=== PATIENT | male | born 1950 | race Caucasian/White ===

== ENCOUNTER 2016-10-17 20:31 | Inpatient (IN) | payer OTHER ==
[~2016-10-17] VITALS: Ht 177.8 cm; Wt 79.8 kg
[2016-10-17 21:35] LABS: MODE NASAL CANNULA; Sample Type Blood venous; Venous COHb 0.1 %; Venous Fraction OxyHgb 26.9 %; Venous Total Hemglobin 13.5 g/dl
--- NOTE | 2016-10-17 21:41 | RADRPT ---
PROCEDURE: XR Chest. CLINICAL INDICATION: Dyspnea. TECHNIQUE: Single frontal view of the chest was obtained COMPARISON: None FINDINGS: The heart and mediastinum are within normal limits. Mild pulmonary vascular congestion with patchy atelectasis versus airspace disease at lung bases. There is no pleural effusion or pneumothorax. IMPRESSION: Mild failure. RPTAT: [facility]U Physician Isabelle Date Time Electronically viewed and signed by Physician Isabelle on 10/17/2016 21:41 RS/
[2016-10-17 21:46] LABS: CHLORIDE 102 mmol/L (97-110)
[2016-10-17 21:47] LABS: ALBUMIN 3.8 g/dl (3.3-4.9); BASOPHILS % 0.4 % (0.0-2.0); EOSINOPHILS # 0.2 10^3/ul (0.0-0.5); HEMATOCRIT 40.7 % (42.0-52.0); HEMOGLOBIN 13.6 g/dl (14.0-18.0); LYMPHOCYTES # 1.4 10^3/ul (0.8-2.9); LYMPHOCYTES % 16.2 % (15.0-51.0); MEAN CORPUSCULAR HEMOGLOBIN 29.7 pg (29.0-33.0); MEAN CORPUSCULAR HGB CONC 33.5 g/dl (32.0-37.0); MEAN CORPUSCULAR VOLUME 88.6 fl (82.0-101.0); MEAN PLATELET VOLUME 7.6 fl (7.4-10.4); MONOCYTE # 0.7 10^3/ul (0.3-0.9); MONOCYTES % 7.7 % (0.0-11.0); NEUTROPHIL # 6.5 10^3/ul (1.6-7.5); NEUTROPHILS % 73.7 % (39.0-77.0); PLATELET COUNT 195 10^3/UL (140-440); PROTIME 13.2 Sec (12.2-14.2); RED CELL DISTRIBUTION WIDTH 13.1 % (11.5-14.5); SODIUM 142 mmol/L (135-144); UNCORRECTED WBC 8.8 10^3/ul (4.8-10.8); WHITE BLOOD COUNT 8.8 10^3/ul (4.8-10.8)
[2016-10-17 21:48] LABS: CONDITION 1; POTASSIUM 4.3 mmol/L (3.5-5.1)
[2016-10-17 21:50] LABS: ALANINE AMINOTRANSFERASE 26 IU/L (13-69); ALBUMIN/GLOBULIN RATIO 1.05; ALKALINE PHOSPHATASE 68 IU/L (42-121); ANION GAP 15 (8-16); ASPARTATE AMINO TRANSFERASE 24 IU/L (15-46); BILIRUBIN,INDIRECT 0.7 mg/dl (0-1.1); BILIRUBIN,TOTAL 0.7 mg/dl (0.2-1.3); BLOOD UREA NITROGEN 15 mg/dl (7-20); CALCIUM 9.2 mg/dl (8.4-10.2); CARBON DIOXIDE 29 mmol/L (21-31); CREATININE 0.72 mg/dl (0.61-1.24); GLUCOSE 96 mg/dl (70-220); TOTAL PROTEIN 7.4 g/dl (6.1-8.1)
[2016-10-17 21:59] LABS: B-TYPE NATRIURETIC PEPTIDE 257 PG/ML (0-125)
[2016-10-17 22:20] LABS: TROPONIN-I < 0.012 ng/ml (0.00-0.12)
[2016-10-17] MEDS ORDERED: SOD CHLORIDE 0.9% 100 ML ONE (22:56)
[2016-10-17] MEDS ORDERED: IOHEXOL 350MG/ML 50 ML BTL ONE (22:56)
[2016-10-17] MEDS ORDERED: IOHEXOL 100 ML ONE (22:56)
--- NOTE | 2016-10-17 23:23 | RADRPT ---
PROCEDURE: CT angiogram of the chest with contrast. CLINICAL INDICATION: Chest pain. TECHNIQUE: CT angiogram of the chest was obtained using a multi-detector high-resolution CT. Con tiguous axial images were obtained during the dynamic injection of 94 cc of Omnipaque 350 intravenou s contrast. Coronal and sagittal reformatted images were obtained. 3-D reformatted images were als o obtained. Images were reviewed on a PACS workstation. One or more of the following dose reduction techniques were used: - Automated exposure control. - Adjustment of the mA and/or kV according to patient size. - Use of iterative reconstruction technique. Exam CTD/vol = 16.85 mGy. Total exam DLP = 601.35 mGy-cm. COMPARISON: None. FINDINGS: There are multiple filling defects within the distal right and left main pulmonary arteries extendin g to the lobar, segmental and subsegmental pulmonary arteries. The heart is mildly enlarged. There is no pericardial thickening or effusion. The aorta is of normal course and caliber without eviden ce of aneurysm or dissection. There is no evidence of chest wall mass. There is a hypodense nodule within the right thyroid measu ring 1.9 x 2.3 cm. There is a small left axillary lymph node measuring 1.8 x 1.5 cm. There are no enlarged mediastinal or hilar lymph nodes by CT criteria. There is no parenchymal nodule or consoli dation. There is no pleural effusion. There is mild bibasilar atelectasis. The central tracheobronc hial tree is within normal limits. Limited evaluation of the upper abdomen demonstrates a small right renal cyst. There is moderate re tained stool within the colon. There are old fractures of the right posterior third through eighth r ibs. IMPRESSION: Extensive pulmonary emboli bilaterally. Mild bibasilar atelectasis. Mild cardiomegaly. Right thyroid hypodense nodule measuring 1.9 x 2.3 cm. Small left axillary lymph node. Moderate retained stool within the colon. Old fractures of the right posterior third through eighth ribs. A call report was made to Dr. Payton at 11:20 p.m. .Devon Bustamante MD, MD Date Time Electronically viewed and signed by .Devon Bustamante MD, MD on 10/17/2016 23:22 .T/
[2016-10-17] MEDS ORDERED: ACETAMINOPHEN 325 MG TAB PO PRN (23:30)
[2016-10-17] MEDS ORDERED: HEPARIN 1000 UNITS/ML 10 ML INJ IV PRN ×2 (23:30)
[2016-10-17] MEDS ORDERED: ONDANSETRON 4 MG INJ IV PRN (23:30)
[2016-10-17] MEDS ORDERED: HEPARIN 1000 UNITS/ML 10 ML INJ IV ONE (23:30)
[2016-10-17] MEDS ORDERED: HEPARIN 25000 UNITS/250 ML 250 ML IV SCH (23:30)
[2016-10-18] VITALS (13 sets, daily range): BP systolic 94–154; BP diastolic 50–84; PULSE 78–102; RESP 18–20; Ht 177.8 cm; Wt 79.8 kg
[2016-10-18] MEDS ORDERED: ENOXAPARIN 80 MG/0.8 ML SYG SC SCH
[2016-10-18] MEDS ORDERED: BISACODYL 10 MG SUPP PR PRN (00:30)
[2016-10-18] MEDS ORDERED: morphine 2 MG INJ IV PRN (00:30)
[2016-10-18] MEDS ORDERED: ONDANSETRON 4 MG INJ IV PRN (00:30)
[2016-10-18] MEDS ORDERED: DOCUSATE SODIUM 100 MG CAP PO PRN (00:30)
[2016-10-18] MEDS ORDERED: LORAZEPAM 0.5 MG TAB PO PRN (00:30)
[2016-10-18] MEDS ORDERED: NACL 0.9% 3 ML SYG IV SCH (00:30)
[2016-10-18] MEDS ORDERED: ACETAMINOPHEN 325 MG TAB PO PRN (00:30)
[2016-10-18] MEDS ORDERED: MAGNESIUM HYDROXIDE 30ML CUP PO PRN (00:30)
--- NOTE | 2016-10-18 01:20 | ERA ---
ER Documentation Chief Complaint Date/Time DATE: 10/18/16 TIME: 01:13 Chief Complaint sob x 1 day HPI 66-year-old male with a history of hypertension presenting complaining of shortness of breath for about 3 days. The patient mostly lays in bed all day due to his balance issues but has a physical therapist. He does not exert himself much. He denies any associated chest pain, cough, dizziness, diaphoresis, URI symptoms, phlegm. His legs are usually mildly edematous per and that has not gotten worse. Currently the patient endorses mild shortness of breath but feels comfortable. He saw a solar manufacturer's representative one year ago because he was diagnosed with a right bundle branch block, however the etiology is unknown. ROS All systems reviewed and are negative except as per history of present illness. Allergies Allergies: Coded Allergies: No Known Allergy (Unverified , 10/17/16) PMhx/Soc Medical and Surgical Hx: pt denies Surgical Hx Anesthesia Reaction: No Hx Neurological Disorder: Yes (Cerebellar atrophy with balance problems) Hx Respiratory Disorders: No Hx Cardiac Disorders: Yes (Right BUNDLE BRUNCH BLOCK) Hx Psychiatric Problems: No Hx Miscellaneous Medical Probl: No Hx Alcohol Use: No Hx Substance Use: No Hx Tobacco Use: No Smoking Status: Never smoker FmHx Family History: No diabetes Physical Exam Vitals Vital Signs Date Time Temp Pulse Resp B/P Pulse Ox O2 Delivery O2 Flow Rate FiO2 10/17/16 21:51 Nasal Cannula 10/17/16 20:42 98.3 89 17 150/94 97 10/17/16 20:42 Simple Mask Physical Exam Const: No apparent distress, nontoxic Head: Atraumatic Eyes: Normal Conjunctiva ENT: Normal External Ears, Nose and Mouth. Neck: Full range of motion. No JVD. no meningismus. Resp: Clear to auscultation bilaterally. No wheezing or rales Cardio: Regular rate and rhythm, no murmurs Abd: Soft, non tender, non distended. Normal bowel sounds Skin: No petechiae or rashes Back: No midline or flank tenderness Ext: No cyanosis, 1+ bilateral lower extremity edema, equal in size bilaterally, no calf tenderness. 2+ distal pulses Neur: Awake and alert and oriented 3. Psych: Normal Mood and flat affect Result Diagram: 1/21/17 2130 1/21/17 2130 Results 24 hrs Laboratory Tests Test 10/17/16 20:55 10/17/16 21:30 Francois Test N/A Arterial Blood Date Drawn 10/17/2016 9:20:23 PM Arterial Blood Gas Puncture Site Right Brachial Blood Gas Actual Respiration Rate 26 Blood Gas Critical Value Read Back Naina LAL Blood Gas Modality NASAL CANNULA Blood Gas Notified Time 10/17/2016 9:35:20 PM Blood Gas Notified Whom BL Blood Gas Specimen Source Blood venous Blood Gas Temperature 37.0C Carboxyhemoglobin 0.1% FiO2 28.0% Venous Blood Base Excess 1.6mmol/L Venous Blood HCO3 26.6mmol/L Venous Blood Methemoglobin 1.0% Venous Blood Oxygen Saturation 27.2mmHG Venous Blood Oxyhemoglobin 26.9% Venous Blood Total Hemoglobin 13.5g/dl Venous Blood pCO2 (Temp Corrected) 43.2mmHG Venous Blood pH 7.407 Venous Blood pO2 (Temp Corrected) 18.6mmHG Activated Partial Thromboplast Time 30.0Sec Alanine Aminotransferase (ALT/SGPT) 26IU/L Albumin 3.8g/dl Albumin/Globulin Ratio 1.05 Alkaline Phosphatase 68IU/L Anion Gap 15 Aspartate Amino Transf (AST/SGOT) 24IU/L B-Type Natriuretic Peptide 257PG/ML Basophils # 0.010^3/ul Basophils % 0.4% Blood Urea Nitrogen 15mg/dl Calcium Level 9.2mg/dl Carbon Dioxide Level 29mmol/L Chloride Level 102mmol/L Creatinine 0.72mg/dl Direct Bilirubin 0.00mg/dl Eosinophils # 0.210^3/ul Eosinophils % 2.0% Globulin 3.60g/dl Glucose Level 96mg/dl Hematocrit 40.7% Hemoglobin 13.6g/dl INR International Normalized Ratio 1.00 Indirect Bilirubin 0.7mg/dl Lymphocytes # 1.410^3/ul Lymphocytes % 16.2% Mean Corpuscular Hemoglobin 29.7pg Mean Corpuscular Hemoglobin Concent 33.5g/dl Mean Corpuscular Volume 88.6fl Mean Platelet Volume 7.6fl Monocytes # 0.710^3/ul Monocytes % 7.7% Neutrophils # 6.510^3/ul Neutrophils % 73.7% Nucleated Red Blood Cells # 0.010^3/ul Nucleated Red Blood Cells % 0.0/100WBC Platelet Count 67771^3/UL Potassium Level 4.3mmol/L Prothrombin Time 13.2Sec Prothrombin Time Ratio 1.0 Red Blood Count 4.6010^6/ul Red Cell Distribution Width 13.1% Sodium Level 142mmol/L Total Bilirubin 0.7mg/dl Total Protein 7.4g/dl Troponin I < 0.012ng/ml White Blood Count 8.810^3/ul Current Medications Medications (Trade) Dose Ordered Sig/Aron Route PRN Reason Start Time Stop Time Status Last Admin Dose Admin IV Flush 10 ml 10 ml STK-MED ONCE .ROUTE 10/17/16 22:56 10/17/16 22:57 DC 10/17/16 23:10 Sodium Chloride 100 ml @ ud STK-MED ONCE .ROUTE 10/17/16 22:56 10/17/16 22:57 DC 10/17/16 23:10 Iohexol (Omnipaque) 100 ml @ ud STK-MED ONCE .ROUTE 10/17/16 22:56 10/17/16 22:57 DC 10/17/16 23:10 Iohexol (Omnipaque 350mg/ ml) 50 ml STK-MED ONCE .ROUTE 10/17/16 22:56 10/17/16 22:57 DC Procedures/MDM EKG: Rate/Rhythm: Normal sinus rhythm QRS, ST, T-waves: No changes consistent w/ acute ischemia, left axis deviation, right bundle branch block Impression: No evidence of ischemia or arrhythmia, right bundle branch block Chest x-ray shows evidence of mild heart failure per radiology This is a 66-year-old male presenting with progressively worsening shortness of breath for 3 days. His vitals are notable for hypoxia on room air to 91% improved with oxygen supplementally. His VBG was notable for a lower than expected PvO2. His BNP was only mildly elevated. I have a low suspicion that the patient's symptoms are secondary to acute coronary syndrome or slowly secondary to CHF. CT angiogram of the chest was done showing bilateral pulmonary embolisms. I spoke with , the admitting physician for [facility], who asked me to start the patient on Lovenox subcutaneously. Currently he is hemodynamically stable and shows no signs of acute heart failure or heart strain. Patient will be admitted to telemetry for further workup and management. Family and patient were updated on the plan. Critical Care Time: 30 minutes Treatments/Evaluations: Close monitoring and treatment of unstable vital signs, cardiorespiratory, and neurologic status, while maintaining tight balance of fluid, respiratory, and cardiac interventions. This time includes discussing the case with the patient and the patients family. This time does not include all procedures stated elsewhere in this record. This time also includes reviewing old records, labs and radiological studies. This time includes examining and re-examining the patient. Additionally, this time also includes arranging care with admitting and consulting physicians. Accepting Care Team: Current data and ongoing care discussed. Time: Time of admission Primary Provider: Tan Consulting: none Outstanding Data: none Departure Diagnosis: Primary Impression: Bilateral pulmonary embolism Additional Impression: Acute respiratory failure with hypoxia Condition: Serious LETICIA CAROLINA MD Oct 18, 2016 01:20
[2016-10-18] MEDS ORDERED: DUTA0.5C PO (01:26)
[2016-10-18] MEDS ORDERED: CEPH250C PO (01:26)
[2016-10-18] MEDS: PANTOPRAZOLE (EC) 40 MG TAB PO SCH (05:54)
[2016-10-18 07:22] LABS: BASOPHILS % 0.5 % (0.0-2.0); EOSINOPHILS # 0.2 10^3/ul (0.0-0.5); EOSINOPHILS % 2.4 % (0.0-7.0); HEMATOCRIT 34.4 % (42.0-52.0); HEMOGLOBIN 11.9 g/dl (14.0-18.0); LYMPHOCYTES # 1.5 10^3/ul (0.8-2.9); LYMPHOCYTES % 19.9 % (15.0-51.0); MEAN CORPUSCULAR HEMOGLOBIN 30.1 pg (29.0-33.0); MEAN CORPUSCULAR HGB CONC 34.4 g/dl (32.0-37.0); MEAN CORPUSCULAR VOLUME 87.4 fl (82.0-101.0); MEAN PLATELET VOLUME 7.8 fl (7.4-10.4); MONOCYTE # 0.7 10^3/ul (0.3-0.9); MONOCYTES % 9.5 % (0.0-11.0); NEUTROPHIL # 5.2 10^3/ul (1.6-7.5); NEUTROPHILS % 67.7 % (39.0-77.0); PLATELET COUNT 179 10^3/UL (140-440); RED BLOOD COUNT 3.93 10^6/ul (4.70-6.10); RED CELL DISTRIBUTION WIDTH 13.3 % (11.5-14.5); UNCORRECTED WBC 7.7 10^3/ul (4.8-10.8); WHITE BLOOD COUNT 7.7 10^3/ul (4.8-10.8)
[2016-10-18 07:39] LABS: CONDITION 1
[2016-10-18 07:45] LABS: ALBUMIN 3.2 g/dl (3.3-4.9)
[2016-10-18 07:46] LABS: POTASSIUM 3.8 mmol/L (3.5-5.1)
[2016-10-18 07:47] LABS: CREATININE 0.77 mg/dl (0.61-1.24)
[2016-10-18 07:48] LABS: ALBUMIN/GLOBULIN RATIO 0.96; BILIRUBIN,INDIRECT 0.6 mg/dl (0-1.1); BILIRUBIN,TOTAL 0.6 mg/dl (0.2-1.3); TOTAL PROTEIN 6.5 g/dl (6.1-8.1)
[2016-10-18 07:49] LABS: CALCIUM 8.6 mg/dl (8.4-10.2)
[2016-10-18] MEDS ORDERED: ENOXAPARIN 100 MG/ML SYG SC SCH (09:00)
[2016-10-18] MEDS: DUTASTERIDE 0.5 MG CAP PO SCH (09:47)
[2016-10-18] MEDS: ENOXAPARIN 80 MG/0.8 ML SYG SC SCH ×2 (09:50→21:22)
--- NOTE | 2016-10-18 10:17 | RADRPT ---
PROCEDURE: US bilateral lower extremity veins. CLINICAL INDICATION: Bilateral leg pain and swelling. Bilateral pulmonary emboli. TECHNIQUE: Multiple longitudinal and transverse images of the bilateral lower extremity veins were obtained with novoa scale and color Doppler imaging. The common femoral vein, femoral vein, and popl iteal vein were evaluated. 2D grayscale measurements with compression sonography, color Doppler, and pulsed Doppler with augmentation. COMPARISON: CT pulmonary angiogram dated 10/17/2016 which demonstrated extensive bilateral pulmona ry emboli. FINDINGS: The right common femoral vein is patent with normal flow and compressibility. There is lack of flow and lack of compressibility of the right femoral vein and right popliteal vein. The veins are dila danilo and contain echogenic thrombus. There is also thrombus in the right posterior tibial vein in th e calf. The left common femoral, femoral and popliteal veins are normally compressible throughout. Color fl ow demonstrates normal filling of the vessels. Normal waveforms are visualized and there is normal response to augmentation. IMPRESSION: 1. Acute deep venous thrombosis of the right femoral vein and right popliteal vein. 2. Otherwise normal bilateral lower extremity venous Doppler. RPTAT: QQ .Farhan Fatima MD, Date Time Electronically viewed and signed by .Farhan Fatima MD, on 10/18/2016 10:17 .R/
--- NOTE | 2016-10-18 12:10 | RADRPT ---
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 Physician: PARESH ROSE Quality: Adequate Procedures: Transthoracic echocardiogram with complete 2D, M-Mode, and Doppler examination. Indications: Pulmonary embolism. 2D/M Mode Doppler Measurement Value Normal Ranges Measurement Value Normal Ranges AoR Diam MM 3.7 cm AV Peak Russel 1.2 m/sec ACS MM 2.2 cm AV Peak PG 5.9 mmHg LVIDd 2D 3.7 3.5 - 5.6 cm LVOT Peak Russel 0.8 m/sec LVIDs 2D 2.5 2.1 - 4.1 cm LVOT Peak PG 2.7 mmHg LVPWd 2D 1.0 0.6 - 1.1 cm MV E Peak Russel 0.5 m/sec IVSd 2D 1.0 0.6 - 1.1 cm MV A Peak Russel 0.6 m/sec EDV 2D 56.4 cm3 MV E/A 0.8 ESV 2D 15.6 cm3 MV Decel Time 149 msec LA Dimen 2D 3.1 2.3 - 4.0 cm MV Decel Carter 3 MV E/A 0.8 TR Peak Russel 3.5 m/sec TR Peak PG 49.4 mmHg PV Peak Russel 1.0 m/sec PV Peak PG 4.0 mmHg RVSP 52.4 mmHg Findings Left Ventricle: Normal left ventricular systolic function. Normal left ventricular cavity size. Normal left ventricular wall thickness. Ejection fraction is visually estimated at 06 %. Tissue Doppler/Mitral Doppler indices are consistent with impaired relaxation (Stage I diastolic dysfunction). E/E`=4. Right Ventricle: Normal right ventricular size. Normal right ventricular systolic function. Left Atrium: The left atrium is normal in size. Right Atrium: The right atrium is normal in size. Atrial Septum: Normal atrial septum. Mitral Valve: Normal appearance of the mitral valve. No mitral valve regurgitation is seen. Aortic Valve: No significant aortic stenosis or insufficiency. Normal trileaflet aortic valve structure. Tricuspid Valve: Normal appearance of the tricuspid valve. Estimated peak PA systolic pressure 52 mmHg. There is mild to moderate tricuspid regurgitation. Pulmonic Valve: Normal pulmonic valve appearance. No evidence of pulmonic regurgitation. Pericardium: Normal pericardium with no significant pericardial effusion. Aorta: Normal aortic root. IVC: Normal size and normal respiratory collapse consistent with normal right atrial pressure. Pulmonary Artery: Normal pulmonary artery size. Conclusions 1.Normal left ventricular systolic function. Normal left ventricular cavity size. Normal left ventricular wall thickness. Ejection fraction is visually estimated at 06 %. Tissue Doppler/Mitral Doppler indices are consistent with impaired relaxation (Stage I diastolic dysfunction). E/E`=4. 2.Normal appearance of the mitral valve. No mitral valve regurgitation is seen. 3.No significant aortic stenosis or insufficiency. Normal trileaflet aortic valve structure. 4.Normal appearance of the tricuspid valve. Estimated peak PA systolic pressure 52 mmHg. There is mild to moderate tricuspid regurgitation. Electronically Signed By: Melchor Mclaughlin 18-Oct-2016 12:08:53 -0800 Patient Name: LYNDSEY BALL Study Date: 18-Oct-[id number]
[2016-10-18 16:50] LABS: T3 UPTAKE 41.2 % (23.5-40.5)
[2016-10-18 17:04] LABS: THYROID STIMULATING HORMONE 0.464 MIU/L (0.465-4.680)
[2016-10-18 17:18] LABS: ADD UMIC NO; URINE BILIRUBIN (Dip) NEGATIVE (NEGATIVE); URINE BLOOD (Dip) NEGATIVE (NEGATIVE); URINE COLOR LT. YELLOW (YELLOW); URINE GLUCOSE (Dip) NEGATIVE (NEGATIVE); URINE KETONES (Dip) NEGATIVE (NEGATIVE); URINE LEUKOCYTE ESTERASE (Dip) NEGATIVE (NEGATIVE); URINE NITRITE (Dip) NEGATIVE (NEGATIVE); URINE TOTAL PROTEIN (Dip) NEGATIVE (NEGATIVE); URINE UROBILINOGEN (Dip) 0.2 E.U./dL (0.1-1.0)
--- NOTE | 2016-10-18 18:18 | CONS ---
DATE OF ADMISSION: 10/17/2016 DATE OF CONSULTATION: 10/18/2016 TYPE OF CONSULTATION: Pulmonary. REFERRING PHYSICIAN: Dr. Rose. REASON FOR CONSULTATION: Pulmonary embolism. HISTORY OF PRESENT ILLNESS: A 66-year-old gentleman with a history of hypertension and cerebellar a taxia, who is mostly bedridden, was brought to the emergency room with complaints of shortness of br eath for the past few days' duration. He did not have any cough, chest pain, palpitation, hemoptysi s, or other symptoms. He was noted to be mildly hypoxic on arrival. Subsequently, a CT angio was d one, which showed bilateral pulmonary embolism. Doppler of lower extremity was also positive for ac [place] band DVT in right lower extremity. The patient was started on full dose Lovenox, currently on 2 lite rs O2 nasal cannula, saturating 98%, and does not appear in acute distress. He claims to be feeling better and denies any other specific symptoms. REVIEW OF SYSTEMS: All systems were reviewed and found to be negative. ALLERGIES: DENIES. PAST MEDICAL HISTORY: History of hypertension, cerebellar ataxia, right bundle bunch block. SOCIAL HABITS: Nonsmoker. Lives at home. FAMILY HISTORY: Noncontributory. PHYSICAL EXAMINATION: VITAL SIGNS: Blood pressure 120/76, pulse 80, respiration 18, temperature 97.8. Currently on 2 lit ers O2 nasal cannula, saturating 97%. HEENT: Pupils are equal and react to light. NECK: Supple. No JVD noted, no cervical adenopathy noted, no carotid bruits heard. LUNGS: Fair breath sounds bilaterally. CARDIOVASCULAR: S1, S2 normal. ABDOMEN: Soft, nontender. No organomegaly or masses noted. EXTREMITIES: No clubbing or cyanosis noted. Slight edema on the right lower extremity noted. NEUROLOGICAL: Awake and responsive. LABORATORIES: Sodium 141, potassium 3.8, chloride 105, CO2 of 27, BUN 15, creatinine 0.77, glucose 88. WBC 7.7, hemoglobin 11.9, hematocrit 34.4, platelets 179. CT angio positive for bilateral embo li. IMPRESSION: 1. Acute pulmonary embolism and deep venous thrombosis. 2. History of cerebellar ataxia. 3. History of hypertension. 4. Risk factor appears to be bedridden status. RECOMMENDATIONS: 1. Oxygen. 2. Full dose Lovenox. 3. Will switch to oral anticoagulants day in next few days. 4. Above discussed with Dr. Rose in detail. Dictated By: EVAN RAMIREZ MD, MA/MONIE Conf#: [id number] DID#: [id number] CC: TED ROSE MD;*End*
--- NOTE | 2016-10-18 19:31 | HP ---
DATE OF ADMISSION: 10/17/2016 PRIMARY CARE PHYSICIAN: Dr. Reyes Zamudio. CHIEF COMPLAINT ON ADMISSION: Shortness of breath. HISTORY OF PRESENT ILLNESS: This is a 66-year-old male with history of benign prostatic hypertrophy and also cerebellar atrophy with severe balance problem, mostly bedridden for the past month now, u ndergoing physical therapy, who was brought into the emergency department by his with reported shortness of breath for 3 days. The patient's family reported persistent shortness of breath for th e past 3 days. In the emergency department, he was satting 91% on room air at rest. The patient de nies and the family confirmed, any chest pain, cough, dizziness, diaphoresis. There is no upper res piratory infection symptoms. He denies any nausea, vomiting, gastrointestinal symptoms. He has had mild edema of the lower extremity which is persistent and chronic according to the family. He has no previous history of coronary artery disease or pulmonary disease. In the emergency department, gaby john was at first evaluated with chest x-ray and laboratory data which were not pointing to any signifi cant underlying etiology for this dyspnea. They tried to take him off oxygen. He would desat willie k to 91%. Therefore, based on his history, a CT angiogram was done and the patient was found to hav e bilateral extensive pulmonary emboli. He was admitted to telemetry in stable condition to start a nticoagulation and further workup. ALLERGIES: NO KNOWN ALLERGIES. PAST MEDICAL HISTORY: 1. Cerebellar atrophy with severe imbalance and balance problems. 2. Benign prostatic hypertrophy. PAST SURGICAL HISTORY: 1. As a child the patient had 6 digits on every extremity, therefore, they had to clipped and reduc ed to 5. 2. Later on during adulthood, he had a right inguinal hernia repair. SOCIAL HISTORY: The patient does not smoke or drink alcohol. He lives with his . He seems to be mostly bedridden with ongoing physical therapy secondary to his severe imbalance and cerebellar i ssues. OUTPATIENT MEDICATIONS: 1. Avodart 0.5 mg p.o. daily. 2. Cephalexin 250 mg p.o. q8 hours. This has been prescribed to the patient apparently for some ski n injury or DTI. REVIEW OF SYSTEMS: As per HPI. PHYSICAL EXAMINATION: VITAL SIGNS: Temperature is 97.5, heart rate of 82, respiratory 18, blood pressure 123/69. Patient is satting 96% on 2 liters nasal cannula. GENERAL: Generally, he is alert and oriented x4. He is in no acute distress. He is at baseline. He seems a little lethargic but this is actually his baseline. He is oriented. He is able to answe r all the questions regarding this history and physical. HEENT: Pupils are equally round and reactive to light, although his right eye seems to be chronical ly a little smaller and extraocular muscles on the right eye seems to be a little slower too. Extra ocular motor activity of left eye is within normal limits, no thyromegaly, no JVD noted. Anicteric sclerae. HEART: Regular rate and rhythm. No murmur, rubs, or gallops. LUNGS: Truly clear to auscultation. ABDOMEN: Soft, nontender, nondistended. Bowel sounds are present. EXTREMITIES: He may have trace edema of lower extremity, no calf tenderness. NEUROLOGIC: Exam is fairly limited as the patient is bedbound currently, but he is moving all 4 ext remities with equal strength 5/5. His gait and ambulation is not tested LABORATORY DATA: White blood cell count is 7.7, hemoglobin 11.9, hematocrit 34.4, platelet count of 179. Chemistry with a sodium of 141, potassium 3.8, chloride 105, bicarbonate 27, BUN 15, creatini ne 0.77, glucose of 88, calcium 8.9, magnesium 2.2, phosphorus 4.4. Liver function tests are within normal. Albumin of 3.2 with total protein 6.5. AST, ALT within normal. Normal total bilirubin. INR is 1.00, PT 13.2, PTT 30.0. EKG on admission showed normal sinus rhythm, 82 beats per minute, no acute ST or T-wave abnormalitie s. RADIOLOGICAL DATA: 1. Chest x-ray upon arrival to the emergency department, showed mild pulmonary vascular congestion with patchy atelectasis versus airspace disease at the lung base. No pleural effusion or pneumothor ax. 2. CT angiogram of the chest shows extensive pulmonary emboli bilaterally, mild bibasilar atelectas is, mild cardiomegaly, right thyroid hypodense nodule 1.9 x 2.3 cm, small left axillary lymph node, moderate retained stool within the colon, old fractures in the right posterior third through eighth rib. 3. Bilateral lower extremity Doppler showed acute DVT in the right femoral vein and right popliteal vein. ASSESSMENT AND PLAN: This is a 66-year-old male with: 1. Venous thromboembolism with extensive bilateral pulmonary embolus and a right lower extremity de ep venous thrombosis. He has been started on Lovenox treatment dosing already. I have discussed th e case with pulmonary. We will maintain him on Lovenox for 48 hours, then switch him to oral antico agulant either Xarelto or Eliquis, depending on which one is covered with his insurance. Likely, th is episode is due to sedentary demand, being bedridden; however, given the finding of possible hypod ense thyroid nodule, I will check his thyroid function testing, and also a thyroid ultrasound and fu rther evaluation as an outpatient. The patient does need anticoagulation with preclude biopsy curre ntly. 2. 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 The patient currently is mo stly bedridden, probably chair-ridden, which he would be probably the safest level of activity curre ntly given his venous thromboembolism. 3. Benign prostate hypertrophy. No previous history of prostate cancer or any kind of malignancies . Continue Avodart for now. I may check a PSA. 4. Prophylaxis. Gastrointestinal prophylaxis with PPI and the patient already on full anticoagulat ion in setting of deep venous thrombosis and pulmonary embolism. DISPOSITION: Again, the patient to be maintained on Lovenox for anticoagulation with plan to switch to oral anticoagulant in the next 48 hours. Dictated By: TED BUCKLEY/MONIE Conf#: [id number] DID#: [id number]
[2016-10-19] VITALS (12 sets, daily range): BP systolic 99–146; BP diastolic 57–82; PULSE 67–87; RESP 18–20
[2016-10-19] MEDS: PANTOPRAZOLE (EC) 40 MG TAB PO SCH (05:31)
[2016-10-19 06:42] LABS: BASOPHILS % 0.4 % (0.0-2.0); EOSINOPHILS # 0.2 10^3/ul (0.0-0.5); EOSINOPHILS % 2.4 % (0.0-7.0); HEMATOCRIT 35.1 % (42.0-52.0); HEMOGLOBIN 11.8 g/dl (14.0-18.0); LYMPHOCYTES # 1.8 10^3/ul (0.8-2.9); LYMPHOCYTES % 24.5 % (15.0-51.0); MEAN CORPUSCULAR HEMOGLOBIN 29.8 pg (29.0-33.0); MEAN CORPUSCULAR HGB CONC 33.7 g/dl (32.0-37.0); MEAN CORPUSCULAR VOLUME 88.5 fl (82.0-101.0); MEAN PLATELET VOLUME 7.4 fl (7.4-10.4); MONOCYTE # 0.7 10^3/ul (0.3-0.9); MONOCYTES % 9.1 % (0.0-11.0); NEUTROPHIL # 4.6 10^3/ul (1.6-7.5); NEUTROPHILS % 63.6 % (39.0-77.0); PLATELET COUNT 193 10^3/UL (140-440); RED BLOOD COUNT 3.96 10^6/ul (4.70-6.10); RED CELL DISTRIBUTION WIDTH 13.5 % (11.5-14.5); UNCORRECTED WBC 7.3 10^3/ul (4.8-10.8); WHITE BLOOD COUNT 7.3 10^3/ul (4.8-10.8)
[2016-10-19 06:52] LABS: CONDITION 1
[2016-10-19 06:53] LABS: POTASSIUM 3.7 mmol/L (3.5-5.1)
[2016-10-19 06:55] LABS: CREATININE 0.68 mg/dl (0.61-1.24)
[2016-10-19 06:56] LABS: CALCIUM 8.6 mg/dl (8.4-10.2)
[2016-10-19 07:11] LABS: PHOSPHORUS 4.3 mg/dl (2.5-4.9)
[2016-10-19] MEDS: DUTASTERIDE 0.5 MG CAP PO SCH (09:37)
[2016-10-19] MEDS: ENOXAPARIN 80 MG/0.8 ML SYG SC SCH ×2 (09:42→21:40)
--- NOTE | 2016-10-19 11:53 | RADRPT ---
PROCEDURE: US Thyroid. CLINICAL INDICATION: Thyroid nodule. TECHNIQUE: High-resolution sonography of the thyroid was performed in the axial and sagittal plane s. COMPARISON: CT scan of the chest dated 10/17/2016 which demonstrated a right thyroid nodule measur ing 1.9 x 2.3 cm. FINDINGS: The right lobe measures 3.2 x 2.0 x 2.5 cm. The left lobe measures 2.4 x 1.0 x 1.3 cm. The isthmus measures 0.2 cm. There are multiple benign cystic nodules in the right lobe with the largest measuring 2.3 cm in maxi mal dimension. There is no other thyroid nodule. Thyroid echogenicity is normal. The thyroid is normal in size. IMPRESSION: 1. Benign cystic nodules in the right lobe with the largest measuring 2.3 cm. No further evaluatio n required. 2. Otherwise normal thyroid ultrasound. RPTAT: QQ .Farhan Fatima MD, MD Date Time Electronically viewed and signed by .Farhan Fatima MD, on 10/19/2016 11:53 .R/
--- NOTE | 2016-10-19 12:53 | CONS ---
Date/Time of Note Date/Time of Note DATE: 10/19/16 TIME: 12:49 Assessment/Plan Assessment/Plan Additional Assessment/Plan Assessment/plan; 1. patient is admitted with right common femoral vein and popliteal vein DVT with acute PE, currently doing very well. 2. Patient mostly bedbound bedbound. Next Recommendations; 1. Continue current treatment. Patient is an excellent candidate for apixaban administration in about 5 days time. Consultation Date/Type/Reason Admit Date/Time Oct 17, 2016 at 23:29 Initial Consult Date 24 HR Interval Summary Free Text/Dictation Mr. Mesa is doing very well, he denies any shortness of breath, denies any chest pain, denies any coughing, denies any hemoptysis or sputum production. Patient currently is eating. Denies any leg pain. Exam/Review of Systems Vital Signs Vitals Vital Signs Date Time Temp Pulse Resp B/P Pulse Ox O2 Delivery O2 Flow Rate FiO2 10/19/16 12:07 73 10/19/16 11:28 98.5 20 99/58 92 10/19/16 10:43 Nasal Cannula 2.0 Intake and Output 10/18/16 10/18/16 10/19/16 15:00 23:00 07:00 Intake Total 860 ml 600 ml Output Total 800 ml Balance 860 ml -200 ml Exam HEENT examination; supple neck, no lymphadenopathy, midline trachea, pharynx is clear. Pupils are midsize reactive to light. Extraocular movements are intact. Chest examination; clear to auscultation. S1-S2 audible no murmurs regular rhythm. Abdominal examination; soft nontender, nondistended, no organomegaly. Bowel sounds audible. Extremity examination; no peripheral edema, no calf tenderness. 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 Results Result Diagram: 10/19/16 0555 10/19/16 0555 Results 24 hrs Laboratory Tests Test 10/18/16 15:00 10/18/16 16:05 10/19/16 05:55 Urine Bilirubin NEGATIVE Urine Clarity CLEAR Urine Color LT. YELLOW Urine Glucose NEGATIVE Urine Hemoglobin NEGATIVE Urine Ketones NEGATIVE Urine Leukocyte Esterase NEGATIVE Urine Nitrite NEGATIVE Urine Specific [place] 1.010 Urine Total Protein NEGATIVE Urine Urobilinogen 0.2 E.U./dL Urine pH 8.0 Free Thyroxine 0.99 Free Thyroxine Index 2.88 Thyroid Stimulating Hormone (TSH) 0.464 L Thyroxine (T4) 7.0 Triiodothyronine (T3) Uptake 41.2 H Anion Gap 12 Basophils # 0.0 Basophils % 0.4 Blood Urea Nitrogen 14 Calcium Level 8.6 Carbon Dioxide Level 28 Chloride Level 105 Creatinine 0.68 Eosinophils # 0.2 Eosinophils % 2.4 Glucose Level 97 Hematocrit 35.1 L Hemoglobin 11.8 L Lymphocytes # 1.8 Lymphocytes % 24.5 Magnesium Level 2.0 Mean Corpuscular Hemoglobin 29.8 Mean Corpuscular Hemoglobin Concent 33.7 Mean Corpuscular Volume 88.5 Mean Platelet Volume 7.4 Monocytes # 0.7 Monocytes % 9.1 Neutrophils # 4.6 Neutrophils % 63.6 Nucleated Red Blood Cells # 0.0 Nucleated Red Blood Cells % 0.0 Phosphorus Level 4.3 Platelet Count 193 Potassium Level 3.7 Red Blood Count 3.96 L Red Cell Distribution Width 13.5 Sodium Level 141 White Blood Count 7.3 Medications Medications Current Medications Lorazepam (Ativan) 0.5 mg Q8H PRN PO ANXIETY; Start 10/18/16 at 00:30 Ondansetron HCl (Zofran Inj) 4 mg Q6H PRN IV NAUSEA AND/OR VOMITING; Start at 00:30 Acetaminophen (Tylenol Tab) 650 mg Q6H PRN PO PAIN LEVEL 1-3 OR FEVER Last administered on 10/18/16 01:37; Admin Dose 650 MG; Start 10/18/16 at 00:30 Morphine Sulfate (morphine) 2 mg Q4H PRN IV PAIN LEVEL 7-10; Start 10/18/16 at 00:30 Docusate Sodium (Colace) 100 mg Q12H PRN PO CONSTIPATION Last administered on 01:37; Admin Dose 100 MG; Start 10/18/16 at 00:30 Magnesium Hydroxide (Milk Of Mag) 30 ml DAILY PRN PO CONSTIPATION; Start at 00:30 Bisacodyl (Dulcolax Supp) 10 mg DAILY PRN [place] CONSTIPATION; Start 10/18/16 at 00 :30 Pantoprazole (Protonix Tab) 40 mg DAILY@06 PO Last administered on 10/19/16 05 :31; Admin Dose 40 MG; Start 10/18/16 at 06:00 Enoxaparin Sodium (Lovenox) 80 mg Q12 SC Last administered on 10/19/16 09:42; Admin Dose 80 MG; Start 10/18/16 at 09:00 Dutasteride (Avodart) 0.5 mg DAILY PO Last administered on 10/19/16 09:37; Admin Dose 0.5 MG; Start 10/18/16 at 09:00 TEE ANGUIANO Oct 19, 2016 12:53
--- NOTE | 2016-10-19 13:49 | CONS ---
Date/Time of Note Date/Time of Note DATE: 10/19/16 TIME: 13:46 Consult Date/Type/Reason Admit Date/Time Oct 17, 2016 at 23:29 Initial Consult Date Type of Consultation: Pulm Subjective Comfortable Objective Vital Signs Date Time Temp Pulse Resp B/P Pulse Ox O2 Delivery O2 Flow Rate FiO2 10/19/16 12:07 73 10/19/16 11:28 98.5 20 99/58 92 10/19/16 10:43 Nasal Cannula 2.0 Intake and Output 10/18/16 10/18/16 10/19/16 14:59 22:59 06:59 Intake Total 860 ml 600 ml Output Total 800 ml Balance 860 ml -200 ml PHYSICAL EXAMINATION: VITAL SIGNS: as above HEENT: Pupils are equal and react to light. NECK: Supple. No JVD noted, no cervical adenopathy noted, no carotid bruits heard. LUNGS: Fair breath sounds bilaterally. CARDIOVASCULAR: S1, S2 normal. ABDOMEN: Soft, nontender. No organomegaly or masses noted. EXTREMITIES: No clubbing or cyanosis noted. NEUROLOGICAL: Awake and responsive. Results/Medications Result Diagram: 10/19/16 0555 10/19/16 0555 Results 24 hrs Laboratory Tests Test 10/18/16 15:00 10/18/16 16:05 10/19/16 05:55 Urine Bilirubin NEGATIVE Urine Clarity CLEAR Urine Color LT. YELLOW Urine Glucose NEGATIVE Urine Hemoglobin NEGATIVE Urine Ketones NEGATIVE Urine Leukocyte Esterase NEGATIVE Urine Nitrite NEGATIVE Urine Specific [place] 1.010 Urine Total Protein NEGATIVE Urine Urobilinogen 0.2 E.U./dL Urine pH 8.0 Free Thyroxine 0.99 Free Thyroxine Index 2.88 Thyroid Stimulating Hormone (TSH) 0.464 L Thyroxine (T4) 7.0 Triiodothyronine (T3) Uptake 41.2 H Anion Gap 12 Basophils # 0.0 Basophils % 0.4 Blood Urea Nitrogen 14 Calcium Level 8.6 Carbon Dioxide Level 28 Chloride Level 105 Creatinine 0.68 Eosinophils # 0.2 Eosinophils % 2.4 Glucose Level 97 Hematocrit 35.1 L Hemoglobin 11.8 L Lymphocytes # 1.8 Lymphocytes % 24.5 Magnesium Level 2.0 Mean Corpuscular Hemoglobin 29.8 Mean Corpuscular Hemoglobin Concent 33.7 Mean Corpuscular Volume 88.5 Mean Platelet Volume 7.4 Monocytes # 0.7 Monocytes % 9.1 Neutrophils # 4.6 Neutrophils % 63.6 Nucleated Red Blood Cells # 0.0 Nucleated Red Blood Cells % 0.0 Phosphorus Level 4.3 Platelet Count 193 Potassium Level 3.7 Red Blood Count 3.96 L Red Cell Distribution Width 13.5 Sodium Level 141 White Blood Count 7.3 Medications Current Medications Lorazepam (Ativan) 0.5 mg Q8H PRN PO ANXIETY; Start 10/18/16 at 00:30 Ondansetron HCl (Zofran Inj) 4 mg Q6H PRN IV NAUSEA AND/OR VOMITING; Start at 00:30 Acetaminophen (Tylenol Tab) 650 mg Q6H PRN PO PAIN LEVEL 1-3 OR FEVER Last administered on 10/18/16 01:37; Admin Dose 650 MG; Start 10/18/16 at 00:30 Morphine Sulfate (morphine) 2 mg Q4H PRN IV PAIN LEVEL 7-10; Start 10/18/16 at 00:30 Docusate Sodium (Colace) 100 mg Q12H PRN PO CONSTIPATION Last administered on 01:37; Admin Dose 100 MG; Start 10/18/16 at 00:30 Magnesium Hydroxide (Milk Of Mag) 30 ml DAILY PRN PO CONSTIPATION; Start at 00:30 Bisacodyl (Dulcolax Supp) 10 mg DAILY PRN [place] CONSTIPATION; Start 10/18/16 at 00 :30 Pantoprazole (Protonix Tab) 40 mg DAILY@06 PO Last administered on 10/19/16 05 :31; Admin Dose 40 MG; Start 10/18/16 at 06:00 Enoxaparin Sodium (Lovenox) 80 mg Q12 SC Last administered on 10/19/16 09:42; Admin Dose 80 MG; Start 10/18/16 at 09:00 Dutasteride (Avodart) 0.5 mg DAILY PO Last administered on 10/19/16 09:37; Admin Dose 0.5 MG; Start 10/18/16 at 09:00 Assessment/Plan Chief Complaint/Hosp Course IMPRESSION: 1. Acute pulmonary embolism and deep venous thrombosis. 2. History of cerebellar ataxia. 3. History of hypertension. RECOMMENDATIONS: 1. Oxygen. 2. Full dose Lovenox. 3. Will switch to oral anticoagulants day in next few days. PT eval. Problems: CATHERINE MCCARTY [facility] Oct 19, 2016 13:48
--- NOTE | 2016-10-19 16:19 | PN ---
Date/Time of Note Date/Time of Note DATE: 10/19/16 TIME: 15:40 Assessment/Plan VTE Prophylaxis VTE Prophylaxis Intervention: other (on) Lines/Catheters [facility]from [facility] Saline Lock Urinary Cath still in place: No Assessment/Plan Assessment/Plan 66-year-old male with: 1. Venous thromboembolism with extensive bilateral pulmonary embolus and right lower extremity deep venous thrombosis. On Lovenox treatment dosing already, 80 mg SQ bid and plans to switch to oral anticoagulant either Xarelto or Eliquis tomorrow PT eval tomorrow 2. Thyroid nodule, actyally a cyst on US and TFTs wnl, no further testing needed. 3. 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 The patient currently is mostly bedridden, probably chair-ridden, which he would be probably the safest level of activity currently given his venous thromboembolism. PT eval in AM 4. Benign prostate hypertrophy. UA negative for RBC and no signs of Hematuria No previous history of prostate cancer or any kind of malignancies. Continue Avodart for now. PSA pending Prophylaxis. Gastrointestinal prophylaxis with PPI and on full anticoagulation for VTE. DISPOSITION: Again, the patient to be maintained on Lovenox for anticoagulation with plan to switch to oral anticoagulant in the next 24 hours, Eliquis vs Xarelto. Subjective 24 Hr Interval Summary Free Text/Dictation Patient doing well Respiratory status stable Discussed with , and will plan for home discharge tomorrow if patient stable No complaints today Exam/Review of Systems Vital Signs Vitals Vital Signs Date Time Temp Pulse Resp B/P Pulse Ox O2 Delivery O2 Flow Rate FiO2 10/19/16 15:05 98.2 77 18 107/57 96 10/19/16 10:43 Nasal Cannula 2.0 Intake and Output 10/18/16 10/18/16 10/19/16 15:00 23:00 07:00 Intake Total 860 ml 600 ml Output Total 800 ml Balance 860 ml -200 ml Exam Constitutional: alert, oriented, well developed Respiratory: clear to auscultation, normal air movement Cardiovascular: nl pulses, regular rate and rhythm Gastrointestinal: non-tender, soft Musculoskeletal: nl extremities to inspection Extremities: normal pulses, other (no edema, clubbing or cyanosis ) Neurological: 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 II-XII intact (baseline ), nl mental status (baseline ), nl speech (at baseline ), other (abnormal gait and imbalance at baseline due to chronic cerebellar atrophy ) Results Result Diagram: 10/19/16 0555 10/19/16 0555 Results 24 hrs Laboratory Tests Test 10/18/16 16:05 10/19/16 05:55 Free Thyroxine 0.99 Free Thyroxine Index 2.88 Thyroid Stimulating Hormone (TSH) 0.464 L Thyroxine (T4) 7.0 Triiodothyronine (T3) Uptake 41.2 H Anion Gap 12 Basophils # 0.0 Basophils % 0.4 Blood Urea Nitrogen 14 Calcium Level 8.6 Carbon Dioxide Level 28 Chloride Level 105 Creatinine 0.68 Eosinophils # 0.2 Eosinophils % 2.4 Glucose Level 97 Hematocrit 35.1 L Hemoglobin 11.8 L Lymphocytes # 1.8 Lymphocytes % 24.5 Magnesium Level 2.0 Mean Corpuscular Hemoglobin 29.8 Mean Corpuscular Hemoglobin Concent 33.7 Mean Corpuscular Volume 88.5 Mean Platelet Volume 7.4 Monocytes # 0.7 Monocytes % 9.1 Neutrophils # 4.6 Neutrophils % 63.6 Nucleated Red Blood Cells # 0.0 Nucleated Red Blood Cells % 0.0 Phosphorus Level 4.3 Platelet Count 193 Potassium Level 3.7 Red Blood Count 3.96 L Red Cell Distribution Width 13.5 Sodium Level 141 White Blood Count 7.3 Medications Medications Current Medications Lorazepam (Ativan) 0.5 mg Q8H PRN PO ANXIETY; Start 10/18/16 at 00:30 Ondansetron HCl (Zofran Inj) 4 mg Q6H PRN IV NAUSEA AND/OR VOMITING; Start at 00:30 Acetaminophen (Tylenol Tab) 650 mg Q6H PRN PO PAIN LEVEL 1-3 OR FEVER Last administered on 10/18/16 01:37; Admin Dose 650 MG; Start 10/18/16 at 00:30 Morphine Sulfate (morphine) 2 mg Q4H PRN IV PAIN LEVEL 7-10; Start 10/18/16 at 00:30 Docusate Sodium (Colace) 100 mg Q12H PRN PO CONSTIPATION Last administered on 01:37; Admin Dose 100 MG; Start 10/18/16 at 00:30 Magnesium Hydroxide (Milk Of Mag) 30 ml DAILY PRN PO CONSTIPATION; Start at 00:30 Bisacodyl (Dulcolax Supp) 10 mg DAILY PRN [place] CONSTIPATION; Start 10/18/16 at 00 :30 Pantoprazole (Protonix Tab) 40 mg DAILY@06 PO Last administered on 10/19/16 05 :31; Admin Dose 40 MG; Start 10/18/16 at 06:00 Enoxaparin Sodium (Lovenox) 80 mg Q12 SC Last administered on 10/19/16 09:42; Admin Dose 80 MG; Start 10/18/16 at 09:00 Dutasteride (Avodart) 0.5 mg DAILY PO Last administered on 10/19/16 09:37; Admin Dose 0.5 MG; Start 10/18/16 at 09:00 TED ROSE Oct 19, 2016 15:55
[2016-10-20] VITALS (11 sets, daily range): BP systolic 114–146; BP diastolic 63–81; PULSE 68–78; RESP 20
[2016-10-20] MEDS: PANTOPRAZOLE (EC) 40 MG TAB PO SCH (06:37)
[2016-10-20 07:39] LABS: POTASSIUM 3.9 mmol/L (3.5-5.1)
[2016-10-20 07:41] LABS: CREATININE 0.72 mg/dl (0.61-1.24)
[2016-10-20 07:42] LABS: CALCIUM 8.6 mg/dl (8.4-10.2)
[2016-10-20 07:48] LABS: BASOPHILS % 0.6 % (0.0-2.0); EOSINOPHILS # 0.2 10^3/ul (0.0-0.5); EOSINOPHILS % 3.2 % (0.0-7.0); HEMATOCRIT 34.6 % (42.0-52.0); LYMPHOCYTES # 1.5 10^3/ul (0.8-2.9); LYMPHOCYTES % 23.6 % (15.0-51.0); MEAN CORPUSCULAR HEMOGLOBIN 30.3 pg (29.0-33.0); MEAN CORPUSCULAR HGB CONC 34.6 g/dl (32.0-37.0); MEAN CORPUSCULAR VOLUME 87.7 fl (82.0-101.0); MEAN PLATELET VOLUME 7.6 fl (7.4-10.4); MONOCYTE # 0.5 10^3/ul (0.3-0.9); MONOCYTES % 8.6 % (0.0-11.0); PLATELET COUNT 218 10^3/UL (140-440); RED BLOOD COUNT 3.95 10^6/ul (4.70-6.10); RED CELL DISTRIBUTION WIDTH 13.5 % (11.5-14.5); UNCORRECTED WBC 6.2 10^3/ul (4.8-10.8); WHITE BLOOD COUNT 6.2 10^3/ul (4.8-10.8)
[2016-10-20 08:03] LABS: CONDITION 1
[2016-10-20] MEDS: DUTASTERIDE 0.5 MG CAP PO SCH (08:56)
[2016-10-20] MEDS: ENOXAPARIN 80 MG/0.8 ML SYG SC SCH (09:00)
--- NOTE | 2016-10-20 10:20 | CONS ---
Date/Time of Note Date/Time of Note DATE: 10/20/16 TIME: 10:18 Assessment/Plan Assessment/Plan Additional Assessment/Plan Assessment 1. Patient admitted with right femoral vein and popliteal vein DVT with acute PE currently doing very well next 2.. Patient mostly bedbound increasing his risk of DVT. Recommendations; continue Lovenox at full dosing continue current medications switch the patient to apixaban in 3 days. Patient will need lifelong treatment. Consultation Date/Type/Reason Admit Date/Time Oct 17, 2016 at 23:29 Type of Consultation: Pulm 24 HR Interval Summary Free Text/Dictation Patient is doing very well, denies any shortness of breath, any chest pain, any leg pain, denies any cough, hemoptysis. Next General examination; elderly, awake alert currently in no distress. Exam/Review of Systems Vital Signs Vitals Vital Signs Date Time Temp Pulse Resp B/P Pulse Ox O2 Delivery O2 Flow Rate FiO2 10/20/16 08:08 68 10/20/16 07:30 97.6 20 135/65 91 10/19/16 22:00 Nasal Cannula 2.0 Intake and Output 10/19/16 10/19/16 10/20/16 15:00 23:00 07:00 Intake Total 720 ml 400 ml Output Total 1500 ml 400 ml Balance -780 ml 0 ml Exam HEENT examination; supple neck, no JVD, no lymphadenopathy, midline trachea, pharynx is clear. Pupils are midsize reactive to light. No neck bruits, no thyromegaly. Next Chest examination; clear to auscultation. Nontender. S1-S2 audible no murmurs regular rhythm. Abdomen examination; soft, nontender, no organomegaly, bowel sounds audible. Extremity examination; no peripheral edema no calf tenderness. Pulses 1+ bilaterally. 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 Results Result Diagram: 10/20/16 0638 10/20/16 0638 Results 24 hrs Laboratory Tests Test 10/20/16 06:38 Anion Gap 14 Basophils # 0.0 Basophils % 0.6 Blood Urea Nitrogen 15 Calcium Level 8.6 Carbon Dioxide Level 26 Chloride Level 105 Creatinine 0.72 Eosinophils # 0.2 Eosinophils % 3.2 Glucose Level 93 Hematocrit 34.6 L Hemoglobin 12.0 L Lymphocytes # 1.5 Lymphocytes % 23.6 Mean Corpuscular Hemoglobin 30.3 Mean Corpuscular Hemoglobin Concent 34.6 Mean Corpuscular Volume 87.7 Mean Platelet Volume 7.6 Monocytes # 0.5 Monocytes % 8.6 Neutrophils # 4.0 Neutrophils % 64.0 Nucleated Red Blood Cells # 0.0 Nucleated Red Blood Cells % 0.0 Platelet Count 218 Potassium Level 3.9 Red Blood Count 3.95 L Red Cell Distribution Width 13.5 Sodium Level 141 White Blood Count 6.2 Medications Medications Current Medications Lorazepam (Ativan) 0.5 mg Q8H PRN PO ANXIETY; Start 10/18/16 at 00:30 Ondansetron HCl (Zofran Inj) 4 mg Q6H PRN IV NAUSEA AND/OR VOMITING; Start at 00:30 Acetaminophen (Tylenol Tab) 650 mg Q6H PRN PO PAIN LEVEL 1-3 OR FEVER Last administered on 10/18/16 01:37; Admin Dose 650 MG; Start 10/18/16 at 00:30 Morphine Sulfate (morphine) 2 mg Q4H PRN IV PAIN LEVEL 7-10; Start 10/18/16 at 00:30 Docusate Sodium (Colace) 100 mg Q12H PRN PO CONSTIPATION Last administered on 01:37; Admin Dose 100 MG; Start 10/18/16 at 00:30 Magnesium Hydroxide (Milk Of Mag) 30 ml DAILY PRN PO CONSTIPATION; Start at 00:30 Bisacodyl (Dulcolax Supp) 10 mg DAILY PRN [place] CONSTIPATION; Start 10/18/16 at 00 :30 Pantoprazole (Protonix Tab) 40 mg DAILY@06 PO Last administered on 10/20/16 06 :37; Admin Dose 40 MG; Start 10/18/16 at 06:00 Enoxaparin Sodium (Lovenox) 80 mg Q12 SC Last administered on 10/20/16 09:00; Admin Dose 80 MG; Start 10/18/16 at 09:00 Dutasteride (Avodart) 0.5 mg DAILY PO Last administered on 10/20/16 08:56; Admin Dose 0.5 MG; Start 10/18/16 at 09:00 TEE ANGUIANO Oct 20, 2016 10:20
--- NOTE | 2016-10-20 10:58 | PN ---
Date/Time of Note Date/Time of Note DATE: 10/20/16 TIME: 10:50 Assessment/Plan VTE Prophylaxis VTE Prophylaxis Intervention: LMWH, other (Xarelto ) Lines/Catheters [facility] Saline Lock Urinary Cath still in place: No Assessment/Plan Assessment/Plan 66-year-old male with: 1. Venous thromboembolism with extensive bilateral pulmonary embolus and right lower extremity deep venous thrombosis. On Lovenox treatment dosing already, 80 mg SQ bid, discussed with Dr Julian, pulmonary, change to xarelto today and to remains on anticoagulation forever, if stable, d/c home in AM PT eval pending and transferring to Med surg. 2. Thyroid nodule, actually a cyst on US and TFTs wnl, no further testing needed. 3. 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 The patient currently is mostly bedridden, probably chair-ridden, which he would be probably the safest level of activity currently given his venous thromboembolism. PT eval pending. 4. Benign prostate hypertrophy. UA negative for RBC and no signs of Hematuria No previous history of prostate cancer or any kind of malignancies. Continue Avodart for now. PSA pending Prophylaxis. Gastrointestinal prophylaxis with PPI and on full anticoagulation for VTE. DISPOSITION: Switch to oral anticoagulant today, PT eval and d/c plan tomorrow on Xarelto. Subjective 24 Hr Interval Summary Free Text/Dictation Patient remains stable with minimal O2 requirement On anticoagulation and to remain on Xarelto forever Transfer to Med Surg today with d/c plan for tomorrow Exam/Review of Systems Vital Signs Vitals Vital Signs Date Time Temp Pulse Resp B/P Pulse Ox O2 Delivery O2 Flow Rate FiO2 10/20/16 10:25 Nasal Cannula 2.0 10/20/16 08:08 68 10/20/16 07:30 97.6 20 135/65 91 Intake and Output 10/19/16 10/19/16 10/20/16 15:00 23:00 07:00 Intake Total 720 ml 400 ml Output Total 1500 ml 400 ml Balance -780 ml 0 ml Exam Constitutional: alert, oriented, well developed Respiratory: clear to auscultation, normal air movement Cardiovascular: nl pulses, regular rate and rhythm Gastrointestinal: non-tender, soft Musculoskeletal: nl extremities to inspection Extremities: normal pulses Neurological: BACON DE RINDER II-XII intact, nl mental status (baseline ), nl speech, other (chronic gait abnormalities and imbalance ) Results Result Diagram: 10/20/16 0638 10/20/16 0638 Results 24 hrs Laboratory Tests Test 10/20/16 06:38 Anion Gap 14 Basophils # 0.0 Basophils % 0.6 Blood Urea Nitrogen 15 Calcium Level 8.6 Carbon Dioxide Level 26 Chloride Level 105 Creatinine 0.72 Eosinophils # 0.2 Eosinophils % 3.2 Glucose Level 93 Hematocrit 34.6 L Hemoglobin 12.0 L Lymphocytes # 1.5 Lymphocytes % 23.6 Mean Corpuscular Hemoglobin 30.3 Mean Corpuscular Hemoglobin Concent 34.6 Mean Corpuscular Volume 87.7 Mean Platelet Volume 7.6 Monocytes # 0.5 Monocytes % 8.6 Neutrophils # 4.0 Neutrophils % 64.0 Nucleated Red Blood Cells # 0.0 Nucleated Red Blood Cells % 0.0 Platelet Count 218 Potassium Level 3.9 Red Blood Count 3.95 L Red Cell Distribution Width 13.5 Sodium Level 141 White Blood Count 6.2 Medications Medications Current Medications Lorazepam (Ativan) 0.5 mg Q8H PRN PO ANXIETY; Start 10/18/16 at 00:30 Ondansetron HCl (Zofran Inj) 4 mg Q6H PRN IV NAUSEA AND/OR VOMITING; Start at 00:30 Acetaminophen (Tylenol Tab) 650 mg Q6H PRN PO PAIN LEVEL 1-3 OR FEVER Last administered on 10/18/16 01:37; Admin Dose 650 MG; Start 10/18/16 at 00:30 Morphine Sulfate (morphine) 2 mg Q4H PRN IV PAIN LEVEL 7-10; Start 10/18/16 at 00:30 Docusate Sodium (Colace) 100 mg Q12H PRN PO CONSTIPATION Last administered on 01:37; Admin Dose 100 MG; Start 10/18/16 at 00:30 Magnesium Hydroxide (Milk Of Mag) 30 ml DAILY PRN PO CONSTIPATION; Start at 00:30 Bisacodyl (Dulcolax Supp) 10 mg DAILY PRN [place] CONSTIPATION; Start 10/18/16 at 00 :30 Pantoprazole (Protonix Tab) 40 mg DAILY@06 PO Last administered on 10/20/16 06 :37; Admin Dose 40 MG; Start 10/18/16 at 06:00 Dutasteride (Avodart) 0.5 mg DAILY PO Last administered on 10/20/16 08:56; Admin Dose 0.5 MG; Start 10/18/16 at 09:00 TED ROSE Oct 20, 2016 10:58
[2016-10-20] MEDS: RIVAROXABAN 15 MG TABLET PO SCH (19:04)
[2016-10-20 19:06] LABS: PSA, FREE 0.3 ng/mL
[2016-10-21] MEDS: PANTOPRAZOLE (EC) 40 MG TAB PO SCH (05:46)
[2016-10-21 07:41] VITALS: BP 115/65; RESP 16
[2016-10-21] MEDS ORDERED: PANT40TA4 PO (09:35)
[2016-10-21] MEDS ORDERED: RIVA15TA PO (09:35)
[2016-10-21] MEDS: DUTASTERIDE 0.5 MG CAP PO SCH (09:45)
[2016-10-21] MEDS: RIVAROXABAN 15 MG TABLET PO SCH (09:45)
--- NOTE | 2016-10-21 09:46 | PN ---
Date/Time of Note Date/Time of Note DATE: 10/21/16 TIME: 09:33 Assessment/Plan VTE Prophylaxis VTE Prophylaxis Intervention: other (on Xarelto ) Lines/Catheters IV [facility]from [facility] Saline Lock Urinary Cath still in place: No Assessment/Plan Assessment/Plan 66-year-old male with: 1. Venous thromboembolism with extensive bilateral pulmonary embolus and right lower extremity deep venous thrombosis. D/c home on Xarelto 15 mg po bid x 21 days then 20 mg po daily Home health PT to continue 2. Thyroid nodule, actually a cyst on US and TFTs wnl, no further testing needed. 3. 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 The patient currently is mostly bedridden, probably chair-ridden, which he would be probably the safest level of activity currently given his venous thromboembolism. Home health PT to continue 4. Benign prostate hypertrophy. UA negative for RBC and no signs of Hematuria No previous history of prostate cancer or any kind of malignancies. Continue Avodart for now. PSA wnl Prophylaxis. Gastrointestinal prophylaxis with PPI and on full anticoagulation for VTE. DISPOSITION: D/c home on Xarelto and to continue Home Health PT and follow up with PCP. Subjective 24 Hr Interval Summary Free Text/Dictation Patient doing OK No complaints today and on RA with good sats D/c home today on Xarelto Exam/Review of Systems Vital Signs Vitals Vital Signs Date Time Temp Pulse Resp B/P Pulse Ox O2 Delivery O2 Flow Rate FiO2 10/21/16 07:41 98.0 62 16 115/65 92 10/20/16 23:53 Nasal Cannula 2.0 Intake and Output 10/20/16 10/20/16 10/21/16 15:00 23:00 07:00 Intake Total 2320 ml 100 ml Balance 2320 ml 100 ml Exam Constitutional: alert, oriented, other (att baseline ), well developed Respiratory: clear to auscultation, normal air movement Cardiovascular: nl pulses, regular rate and rhythm Gastrointestinal: non-tender, soft Musculoskeletal: nl extremities to inspection Extremities: normal pulses, other (no edema, clubbing or cyanosis ) 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 (at 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 ), nl mental status (at baseline) , nl speech (at baseline ) Results Result Diagram: 10/20/1663710/20/16 0638 Medications Medications Current Medications Lorazepam (Ativan) 0.5 mg Q8H PRN PO ANXIETY; Start 10/18/16 at 00:30 Ondansetron HCl (Zofran Inj) 4 mg Q6H PRN IV NAUSEA AND/OR VOMITING; Start at 00:30 Acetaminophen (Tylenol Tab) 650 mg Q6H PRN PO PAIN LEVEL 1-3 OR FEVER Last administered on 10/18/16 01:37; Admin Dose 650 MG; Start 10/18/16 at 00:30 Morphine Sulfate (morphine) 2 mg Q4H PRN IV PAIN LEVEL 7-10; Start 10/18/16 at 00:30 Docusate Sodium (Colace) 100 mg Q12H PRN PO CONSTIPATION Last administered on 01:37; Admin Dose 100 MG; Start 10/18/16 at 00:30 Magnesium Hydroxide (Milk Of Mag) 30 ml DAILY PRN PO CONSTIPATION; Start at 00:30 Bisacodyl (Dulcolax Supp) 10 mg DAILY PRN [place] CONSTIPATION; Start 10/18/16 at 00 :30 Pantoprazole (Protonix Tab) 40 mg DAILY@06 PO Last administered on 10/21/16 05 :46; Admin Dose 40 MG; Start 10/18/16 at 06:00 Dutasteride (Avodart) 0.5 mg DAILY PO Last administered on 10/20/16 08:56; Admin Dose 0.5 MG; Start 10/18/16 at 09:00 TED ROSE Oct 21, 2016 09:45
--- NOTE | 2016-10-21 09:48 | PDOCDIS ---
Discharge Instructions CONDITION Patient Condition: Good HOME CARE INSTRUCTIONS: Diet Instructions: Regular ACTIVITY: Activity Restrictions: Slowly Increase Activity FOLLOW UP/APPOINTMENTS Appointments Follow up with PCP within 1 week Resume Home health PT TED ROSE Oct 21, 2016 09:48
--- NOTE | 2016-10-21 09:53 | CONS ---
Date/Time of Note Date/Time of Note DATE: 10/21/16 TIME: 09:51 Assessment/Plan Assessment/Plan Additional Assessment/Plan Assessment and recommendation 1. Patient admitted with right lower extremity DVT as well as PE currently doing very well. She can be discharged back to either home or to a detention on Xarelto to be maintained indefinitely as there was no precipitating factor for DVT and PE. Consultation Date/Type/Reason Admit Date/Time Oct 17, 2016 at 23:29 Type of Consultation: Pulm 24 HR Interval Summary Free Text/Dictation Patient is doing very well. Denies any shortness of breath. Any leg pain, chest pain, coughing, hemoptysis, sputum production. General examination; elderly, awake alert and currently in no distress. Exam/Review of Systems Vital Signs Vitals Vital Signs Date Time Temp Pulse Resp B/P Pulse Ox O2 Delivery O2 Flow Rate FiO2 10/21/16 09:43 92 Room Air 10/21/16 07:41 98.0 62 16 115/65 10/20/16 23:53 2.0 Intake and Output 10/20/16 10/20/16 10/21/16 14:59 22:59 06:59 Intake Total 2320 ml 100 ml Balance 2320 ml 100 ml Exam HEENT examination; supple neck, no JVD, no lymphadenopathy, no thyromegaly. Pharynx is clear. Midsize pupils reactive to light. Chest examination; clear to auscultation bilaterally. S1-S2 audible. No murmurs. Regular rate and rhythm. Abdomen examination; soft, nontender, nondistended, no organomegaly, bowel sounds audible. Next Extremity examination; no peripheral edema no calf tenderness. Pulses 1+ bilaterally. Next PALLET RECTIFIER examination no focal deficit. Results Result Diagram: 10/20/1638 10/20/16 0638 Medications Medications Current Medications Lorazepam (Ativan) 0.5 mg Q8H PRN PO ANXIETY; Start 10/18/16 at 00:30 Ondansetron HCl (Zofran Inj) 4 mg Q6H PRN IV NAUSEA AND/OR VOMITING; Start at 00:30 Acetaminophen (Tylenol Tab) 650 mg Q6H PRN PO PAIN LEVEL 1-3 OR FEVER Last administered on 10/18/16t 01:37; Admin Dose 650 MG; Start 10/18/16 at 00:30 Morphine Sulfate (morphine) 2 mg Q4H PRN IV PAIN LEVEL 7-10; Start 10/18/16 at 00:30 Docusate Sodium (Colace) 100 mg Q12H PRN PO CONSTIPATION Last administered on 01:37; Admin Dose 100 MG; Start 10/18/16 at 00:30 Magnesium Hydroxide (Milk Of Mag) 30 ml DAILY PRN PO CONSTIPATION; Start at 00:30 Bisacodyl (Dulcolax Supp) 10 mg DAILY PRN [place] CONSTIPATION; Start 10/18/16 at 00 :30 Pantoprazole (Protonix Tab) 40 mg DAILY@06 PO Last administered on 10/21/16 05 :46; Admin Dose 40 MG; Start 10/18/16 at 06:00 Dutasteride (Avodart) 0.5 mg DAILY PO Last administered on 10/21/16 09:45; Admin Dose 0.5 MG; Start 10/18/16 at 09:00 TEE ANGUIANO Oct 21, 2016 09:53
--- NOTE | 2016-10-21 12:08 | DS ---
DATE OF ADMISSION: 10/17/2016 DATE OF DISCHARGE: 10/21/2016 ADMITTING PHYSICIAN: Dr. Maddox. DISCHARGING PHYSICIAN: Dr. Maddox. PRIMARY CARE PHYSICIAN: Dr. Zamudio. CONSULTANTS DURING THIS ADMISSION: Dr. Julian and Dr. Almonte from pulmonary critical care. CHIEF COMPLAINT ON ADMISSION: Shortness of breath. BRIEF HISTORY OF PRESENT ILLNESS: This is a 66-year-old male with history of benign prostatic hyper trophy and also cerebellar atrophy with chronic severe imbalance and mostly sedentary or bedridden a t least for the past month, who presented with mild to moderate shortness of breath. CAT scan did r eveal extensive bilateral pulmonary embolism. The patient was admitted to telemetry bed to initiate anticoagulation and monitor closely. HOSPITAL COURSE: The patient subsequently had lower extremity Dopplers that did show right lower ex tremity DVT. His thyroid function testing was checked as he did have a thyroid nodule which turned out to be a cyst actually, and thyroid function testing was within normal. A PSA is within normal. The suspicion that his venous thromboembolism is most likely caused by his sedentary lifestyle. Th e patient was maintained on Lovenox subq for 48 hours, then switched to Xarelto. He is doing well. He is on room air. He will be discharged home today on Xarelto treatment dose for venous thromboem bolism. I did update the . The patient will need to resume physical therapy at home. He does not need any supplemental oxygen. DISPOSITION: Discharge home with home health to resume physical therapy. DISCHARGE CONDITION: Stable. DISCHARGE DIET: Regular diet. DISCHARGE ACTIVITY: Progressive ambulation with physical therapy. FOLLOWUP: The patient is to follow up with his primary care physician within 1 week. DISCHARGE DIAGNOSES: 1. Venous thromboembolism with extensive bilateral pulmonary embolus and a right lower extremity de ep venous thrombosis. 2. Thyroid cyst. 3. Cerebellar atrophy with chronic imbalance. 4. Benign prostatic hypertrophy. DISCHARGE MEDICATIONS: 1. Protonix 40 mg p.o. daily. 2. Avodart 0.5 mg p.o. daily. 3. Xarelto 15 mg p.o. b.i.d. for 21 days, then 20 mg p.o. daily. Dictated By: TED BUCKLEY/NTS Conf#: [id number] DID#: [id number]
== END 2016-10-21 15:10 | disposition home health service (06) | DRG 175 ==
LOC: E/R 20:31 → TEL 23:17 → OBSVTOIN 23:29 → MS2 10-20 23:00
PROVIDERS: ADMIT Internal Medicine; ATTEND Internal Medicine
DX: I26.99 Other pulmonary embolism without acute cor pulmonale (principal); J96.01 Acute respiratory failure with hypoxia; I82.411 Acute embolism and thrombosis of right femoral vein; I82.491 Acute embolism and thrombosis of other specified deep vein of right lower extremity; G11.9 Hereditary ataxia, unspecified; I10 Essential (primary) hypertension; R09.02 Hypoxemia; N40.0 Benign prostatic hyperplasia without lower urinary tract symptoms
CPT/HCPCS: 36415; 71010; 71275; 76536; 80048; 80053; 81003; 82803; 83735; 83880; 84100; 84153; 84154; 84436; 84439; 84443; 84479; 84484; 85025; 85610; 85730; 93005; 93306; 93965; 97162; G0378; Q9967

== ENCOUNTER 2017-02-02 16:40 | Observation (INO) | payer OTHER ==
[~2017-02-02] VITALS: Ht 177.8 cm; Wt 82.8 kg
[~2017-02-02 16:40] MED LIST: DUTA0.5C PO; PANT40TA4 PO; RIVA15TA PO
--- NOTE | 2017-02-02 18:21 | ERA ---
ER Documentation Chief Complaint Date/Time DATE: 02/02/17 TIME: 18:19 Chief Complaint CHEST PRESSURE HPI The patient is a 66-year-old male, presenting to the ER because of sternal chest pressure/pain about 4 PM that lasted for approximately 2 hours and went away by itself.. He denies similar symptoms previously, he is currently with minimal symptoms. He denies fever, chills, neck pain, chest pain with exertion or vomiting or diaphoresis. He denies abdominal pain, vomiting, dysuria, diarrhea. He does not smoke nor drink. He had history of right leg DVT and pulmonary embolism on Xarelto. He does not smoke nor drink Medical history: BPH, gait impairment Past surgical history: Right inguinal herniorrhaphy ROS All systems reviewed and are negative except as per history of present illness. Medications Home Meds Reported Medications Melatonin (Melatonin) 3 Mg Tablet.sa, 3 MG PO HS, TAB.SA 02/02/17 Acidophilus-Bulgaricus* (BD Lactinex*) 1 Pkt Packet, 1 PKT PO 6 DAILY, PACKET 02/02/17 Cyanocobalamin* (Vitamin B12*) 500 Mcg Tab, 1000 MCG PO DAILY, TAB 02/02/17 Cholecalciferol (Vitamin D3) 5,000 Unit Tablet, 5000 UNIT PO DAILY, TAB 02/02/17 [place]-3 Fatty Acids/Fish Oil ([place] 3 1,000 mg Softgel) 1 Each Capsule, 1 EACH PO BID, CAP 02/02/17 Ubidecarenone (Coq-10) 30 Mg Capsule, 60 MG PO, CAP 02/02/17 Polyethylene Glycol* (Polyethylene Glycol*) 17 Gm Powd.pack, 17 GM PO DAILY, # 30 PACKET 02/02/17 Rivaroxaban* (Xarelto*) 20 Mg Tablet, 20 MG PO WITH DINNER, TAB 02/02/17 Aspirin* (Aspirin* EC) 81 Mg Tablet.dr, 81 MG PO DAILY, TAB 02/02/17 Dutasteride* (Avodart*) 0.5 Mg Capsule, 0.5 MG PO DAILY, CAP 10/18/16 Discontinued Scripts Rivaroxaban* (Xarelto*) 15 Mg Tablet, 15 MG PO BID WITH MEALS for 30 Days, TAB 3 Refills see prescription for dosing Prov:TED ROSE 10/21/16 Pantoprazole* (Pantoprazole*) 40 Mg Tablet., 40 MG PO DAILY, #30 3 Refills Prov:TED ROSE 10/21/16 Allergies Allergies: Coded Allergies: tamsulosin (Unverified Adverse Reaction, Unknown, 02/02/17) PMhx/Soc Anesthesia Reaction: No Hx Neurological Disorder: Yes (Cerebellar atrophy with balance problems) Hx Respiratory Disorders: No Hx Cardiac Disorders: Yes (Right BUNDLE BRUNCH BLOCK) Hx Psychiatric Problems: No Hx Miscellaneous Medical Probl: Yes (HTN, chronic cerebellar atrophy, Rt bundle block branch) Hx Alcohol Use: No Hx Substance Use: No Hx Tobacco Use: No Physical Exam Vitals Vital Signs Date Time Temp Pulse Resp B/P Pulse Ox O2 Delivery O2 Flow Rate FiO2 02/02/17 18:40 98.0 76 20 121/75 96 Room Air 02/02/17 16:49 98.0 79 20 121/69 97 Physical Exam Const: No acute distress. Head: Atraumatic. Eyes: Normal Conjunctiva. ENT: Normal External Ears, Nose and Mouth. Neck: Full range of motion. No meningismus. Resp: Clear to auscultation bilaterally. Cardio: Regular rate and rhythm, no murmurs. Abd: Soft, non distended, normal bowel sounds, non tender. Skin: No petechiae or rashes. Back: No midline or flank tenderness. Ext: No cyanosis, or edema. Neur: Awake and alert. No focal deficit Psych: Normal Mood and Affect. Result Diagram: 02/02/175 02/02/17 1835 Results 24 hrs Laboratory Tests Test 02/02/17 18:35 White Blood Count 7.410^3/ul Red Blood Count 4.5210^6/ul Hemoglobin 13.7g/dl Hematocrit 39.7% Mean Corpuscular Volume 87.8fl Mean Corpuscular Hemoglobin 30.3pg Mean Corpuscular Hemoglobin Concent 34.5g/dl Red Cell Distribution Width 13.2% Platelet Count 83092^3/UL Mean Platelet Volume 9.2fl Neutrophils % 65.5% Lymphocytes % 22.7% Monocytes % 8.8% Eosinophils % 2.4% Basophils % 0.5% Nucleated Red Blood Cells % 0.0/100WBC Neutrophils # 4.810^3/ul Lymphocytes # 1.710^3/ul Monocytes # 0.710^3/ul Eosinophils # 0.210^3/ul Basophils # 0.010^3/ul Nucleated Red Blood Cells # 0.010^3/ul Prothrombin Time 20.1Sec Prothrombin Time Ratio 1.6 INR International Normalized Ratio 1.70 Activated Partial Thromboplast Time 36.5Sec Sodium Level 137mmol/L Potassium Level 4.0mmol/L Chloride Level 99mmol/L Carbon Dioxide Level 27mmol/L Anion Gap 15 Blood Urea Nitrogen 14mg/dl Creatinine 0.70mg/dl Glucose Level 93mg/dl Calcium Level 8.9mg/dl Troponin I < 0.012ng/ml Current Medications Medications (Trade) Dose Ordered Sig/Aron Route PRN Reason Start Time Stop Time Status Last Admin Dose Admin Aspirin (Aspirin) 325 mg ONCE ONCE PO 02/02/17 20:00 02/02/17 20:01 02/02/17 19:45 Nitroglycerin (Nitroglycerin 2% Oint) 1 inch ONCE ONCE TD 02/02/17 20:00 02/02/17 20:01 Procedures/[place] [id number] Radiology Main Line: [phone] DIAGNOSTIC IMAGING REPORT Patient: LYNDSEY BALL : 1950 Age: 66 Sex: M MR #: [id number] DOS: 02/02/17 181 Ordering MD: SHIELA ZAVALA MD Location: E/R Room/Bed: PROCEDURE: Chest x-ray CLINICAL INDICATION: Chest pain TECHNIQUE: Chest single view COMPARISON: 10/17/2016 FINDINGS: The heart is normal in size. The pulmonary vessels are normal in caliber. The lungs are clear. The costophrenic angles are sharp. The visualized bony thorax is unremarkable. IMPRESSION: No acute cardiopulmonary disease. RPTAT: HH .Mu Antunez MD, Date Time Electronically viewed and signed by .Mu Antunez MD, on 02/02/2017 18:56 .W/ CC: SHIELA ZAVALA MD EKG: Read by emergency physician Rate/Rhythm: Normal Sinus Rhythm 76 beats/min QRS, ST, T-waves: No ST elevation, no T inversion, right bundle branch block Impression: Abnormal EKG MEDICAL MAKING DECISION: The patient is 66-year-old male with multiple cardiac risk factors, presented with acute chest pain that is concerning for ACS. He was treated with 500 mL normal saline for clinical dehydration, aspirin 325 mg p.o., normal saline 500 mL for acute chest with good response The differential diagnoses considered include but are not limited to acute coronary syndrome, acute myocardial infarction, pericarditis, pulmonary embolism , aortic dissection, pneumonia, pleural effusion, pneumothorax, GERD, chest wall pain. Departure Diagnosis: Primary Impression: Chest pain Condition: Stable Comments I discussed the findings with the patient. I discussed the patient with his physician who was made aware of the lab, the treatment, the patient condition. The patient is admitted to telemetry for 24 hour observation at 7:40 PM SHIELA ZAVALA MD February 02, 2017 18:21
[2017-02-02 18:40] VITALS: TEMP 98
[2017-02-02 18:44] LABS: ADD SCAN DIFF NO
[2017-02-02 18:46] LABS: BASOPHILS % 0.5 % (0.0-2.0); EOSINOPHILS # 0.2 10^3/ul (0.0-0.5); EOSINOPHILS % 2.4 % (0.0-7.0); HEMATOCRIT 39.7 % (42.0-52.0); HEMOGLOBIN 13.7 g/dl (14.0-18.0); LYMPHOCYTES # 1.7 10^3/ul (0.8-2.9); LYMPHOCYTES % 22.7 % (15.0-51.0); MEAN CORPUSCULAR HEMOGLOBIN 30.3 pg (29.0-33.0); MEAN CORPUSCULAR HGB CONC 34.5 g/dl (32.0-37.0); MEAN CORPUSCULAR VOLUME 87.8 fl (82.0-101.0); MEAN PLATELET VOLUME 9.2 fl (7.4-10.4); MONOCYTE # 0.7 10^3/ul (0.3-0.9); MONOCYTES % 8.8 % (0.0-11.0); NEUTROPHIL # 4.8 10^3/ul (1.6-7.5); NEUTROPHILS % 65.5 % (39.0-77.0); PLATELET COUNT 267 10^3/UL (140-415); RED BLOOD COUNT 4.52 10^6/ul (4.70-6.10); RED CELL DISTRIBUTION WIDTH 13.2 % (11.5-14.5); WHITE BLOOD COUNT 7.4 10^3/ul (4.8-10.8)
--- NOTE | 2017-02-02 18:56 | RADRPT ---
PROCEDURE: Chest x-ray CLINICAL INDICATION: Chest pain TECHNIQUE: Chest single view COMPARISON: 10/17/2016 FINDINGS: The heart is normal in size. The pulmonary vessels are normal in caliber. The lungs are clear. Th e costophrenic angles are sharp. The visualized bony thorax is unremarkable. IMPRESSION: No acute cardiopulmonary disease. RPTAT: HH .Mu Antunez MD, Date Time Electronically viewed and signed by .Mu Antunez MD, MD on 02/02/2017 18:56 .W/
[2017-02-02 19:03] LABS: CHLORIDE 99 mmol/L (97-110); SODIUM 137 mmol/L (135-144)
[2017-02-02 19:04] LABS: INR 1.7; PROTIME 20.1 Sec (12.2-14.2); PT RATIO 1.6
[2017-02-02 19:05] LABS: PARTIAL THROMBOPLASTIN TIME 36.5 Sec (25.0-35.0)
[2017-02-02 19:06] LABS: ANION GAP 15 (8-16); BLOOD UREA NITROGEN 14 mg/dl (7-20); CARBON DIOXIDE 27 mmol/L (21-31); GLUCOSE 93 mg/dl (70-220)
[2017-02-02 19:07] LABS: CALCIUM 8.9 mg/dl (8.4-10.2)
[2017-02-02] MEDS ORDERED: ASPI-664 PO (19:10)
[2017-02-02] MEDS ORDERED: RIVA20TA PO (19:10)
[2017-02-02] MEDS ORDERED: POLY17PO3 PO (19:11)
[2017-02-02] MEDS ORDERED: UBID30CA12 PO (19:14)
[2017-02-02] MEDS ORDERED: OMEG1CAP90 PO (19:15)
[2017-02-02] MEDS ORDERED: CHOL500010 PO (19:15)
[2017-02-02] MEDS ORDERED: CYAN500T46 PO (19:16)
[2017-02-02] MEDS ORDERED: LACTINEXG PO (19:17)
[2017-02-02] MEDS ORDERED: MELA3TAB17 PO (19:18)
[2017-02-02 19:20] LABS: TROPONIN-I < 0.012 ng/ml (0.00-0.12)
[2017-02-02] MEDS ORDERED: ACETAMINOPHEN 325 MG TAB PO PRN (20:00)
[2017-02-02] MEDS ORDERED: ASPIRIN 325 MG TAB PO ONE (20:00)
[2017-02-02] MEDS ORDERED: SOD CHLORIDE 0.9% 500 ML IV ONE (20:00)
[2017-02-02] MEDS ORDERED: NITROGLYCERIN 2% 1 GM OINT PKT TD ONE (20:00)
[2017-02-02] MEDS ORDERED: MAGNESIUM HYDROXIDE 30ML CUP PO PRN (20:00)
[2017-02-02] MEDS ORDERED: DOCUSATE SODIUM 100 MG CAP PO PRN (20:00)
[2017-02-02] MEDS ORDERED: BISACODYL 10 MG SUPP PR PRN (20:00)
[2017-02-02] MEDS ORDERED: [UNRECOGNIZED DRUG - OTHER] PO SCH (20:00)
[2017-02-02] MEDS ORDERED: NITROGLYCERIN (SL) 0.4 MG TAB SL PRN (20:00)
[2017-02-02] MEDS ORDERED: HYDROCODONE/APAP (5/325) TAB PO PRN ×2 (20:00)
[2017-02-02] MEDS ORDERED: ONDANSETRON 4 MG INJ IV PRN (20:00)
[2017-02-02] MEDS ORDERED: NACL 0.9% 3 ML SYG IV SCH (20:00)
[2017-02-02] MEDS ORDERED: NON-FORMULARY/PATIENT OWN MED (Melatonin 3 MG) PO SCH (21:00)
[2017-02-02 21:42] VITALS: PULSE 74
--- NOTE | 2017-02-02 22:02 | RADRPT ---
PROCEDURE: US DVT. CLINICAL INDICATION: Bilateral lower extremity pain and swelling. TECHNIQUE: Multiple longitudinal and transverse images of the bilateral lower extremity veins were obtained with novoa scale and color Doppler imaging. 2D grayscale measurements with compression, co matt Doppler flow, and augmentation was performed. The calf veins were interrogated as well. COMPARISON: 10/18/2016. FINDINGS: The bilateral common femoral, superficial femoral and popliteal veins are normally compressible thro ughout. Color flow demonstrates normal filling of the vessel. Normal waveforms are visualized and there is normal response to augmentation. The calf veins are visualized and are equally unremarkabl e. IMPRESSION: 1. No evidence of a deep vein thrombosis involving either lower extremity. RPTAT: HFN .Ender Archer MD, Date Time Electronically viewed and signed by .Ender Archer MD, MD on 02/02/2017 22:01 .N/
[2017-02-02 22:13] VITALS: BP 141/78; RESP 20
[2017-02-02] MEDS: FISH OIL 1,000 MG CAP PO SCH (22:59)
[2017-02-02] MEDS: FAMOTIDINE 20 MG TAB PO SCH (22:59)
[2017-02-02] MEDS: RIVAROXABAN 20 MG TABLET PO SCH (22:59)
[2017-02-02 23:17] VITALS: Ht 177.8 cm; Wt 82.8 kg
[2017-02-03] VITALS (10 sets, daily range): BP systolic 109–139; BP diastolic 63–81; PULSE 64–88; RESP 16–20
[2017-02-03 01:31] LABS: CREATINE KINASE 75 IU/L (23-200)
[2017-02-03 01:58] LABS: CK-MB 1.59 ng/ml (0.0-2.4)
[2017-02-03 02:10] LABS: TROPONIN-I < 0.012 ng/ml (0.00-0.12)
[2017-02-03 06:50] LABS: ADD SCAN DIFF NO
[2017-02-03 06:54] LABS: BASOPHILS % 0.7 % (0.0-2.0); EOSINOPHILS # 0.2 10^3/ul (0.0-0.5); EOSINOPHILS % 3.8 % (0.0-7.0); HEMATOCRIT 37.6 % (42.0-52.0); HEMOGLOBIN 12.5 g/dl (14.0-18.0); LYMPHOCYTES % 35.1 % (15.0-51.0); MEAN CORPUSCULAR HEMOGLOBIN 29.3 pg (29.0-33.0); MEAN CORPUSCULAR HGB CONC 33.2 g/dl (32.0-37.0); MEAN CORPUSCULAR VOLUME 88.1 fl (82.0-101.0); MEAN PLATELET VOLUME 9.4 fl (7.4-10.4); MONOCYTE # 0.6 10^3/ul (0.3-0.9); MONOCYTES % 9.6 % (0.0-11.0); NEUTROPHIL # 2.9 10^3/ul (1.6-7.5); NEUTROPHILS % 50.6 % (39.0-77.0); PLATELET COUNT 262 10^3/UL (140-415); RED BLOOD COUNT 4.27 10^6/ul (4.70-6.10); RED CELL DISTRIBUTION WIDTH 13.3 % (11.5-14.5); WHITE BLOOD COUNT 5.7 10^3/ul (4.8-10.8)
[2017-02-03 07:19] LABS: POTASSIUM 3.9 mmol/L (3.5-5.1)
[2017-02-03 07:20] LABS: CREATINE KINASE 56 IU/L (23-200)
[2017-02-03 07:21] LABS: BILIRUBIN,INDIRECT 0.6 mg/dl (0-1.1); BILIRUBIN,TOTAL 0.6 mg/dl (0.2-1.3); CREATININE 0.79 mg/dl (0.61-1.24)
[2017-02-03 07:22] LABS: CALCIUM 8.9 mg/dl (8.4-10.2); MAGNESIUM 2.2 mg/dl (1.7-2.5)
[2017-02-03 07:23] LABS: CHOL/HDL RATIO 3.2 RATIO
[2017-02-03 07:27] LABS: CK-MB 1.23 ng/ml (0.0-2.4)
[2017-02-03 07:33] LABS: TROPONIN-I < 0.012 ng/ml (0.00-0.12)
[2017-02-03] MEDS ORDERED: ASPIRIN (EC) 81 MG TAB PO SCH (09:00)
[2017-02-03] MEDS ORDERED: CHOLECALCIFEROL 1,000 UNIT TAB PO SCH (09:00)
[2017-02-03] MEDS ORDERED: CYANOCOBALAMIN 500 MCG TAB PO SCH (09:00)
[2017-02-03] MEDS ORDERED: POLYETHYLENE GLYCOL 17 GM PACKET PO SCH (09:00)
[2017-02-03] MEDS ORDERED: DUTASTERIDE 0.5 MG CAP PO SCH (09:00)
[2017-02-03] MEDS: FISH OIL 1,000 MG CAP PO SCH (09:23)
[2017-02-03] MEDS: FAMOTIDINE 20 MG TAB PO SCH (09:23)
--- NOTE | 2017-02-03 10:15 | RADRPT ---
Vent Rate: 64 bpm RR Interval: [address] Interval: 176 msec QRS Duration: 132 msec QT Interval: 434 msec QTC Interval: 447 msec P-R-T [place]: 44 - 94 - 38 degrees Normal sinus rhythm Right bundle branch block Abnormal ECG Electronically Signed By: Melchor Mclaughlin [id number]
--- NOTE | 2017-02-03 10:23 | HP ---
DATE OF ADMISSION: 02/02/2017 PRIMARY CARE PHYSICIAN: Dr. Reyes Zamudio CHIEF COMPLAINT ON ADMISSION: Chest pressure. HISTORY OF PRESENT ILLNESS: This is a 66-year-old male with history of benign prostatic hypertrophy also cerebellar atrophy, severe balance issue and also mostly bed bound, pulmonary embolism, venous thromboembolism diagnosed 3 months ago, currently on anticoagulation with Xarelto and compliant, wh o was brought into the emergency department yesterday by his after an episode of chest pressure . The patient reports that he was lying in bed as usual, had an episode of chest pressure, substern al on and off that lasted approximately 2 hours and was resolved by the time he presented to the [facility]. He denies any associated symptoms. No shortness of breath, no nausea, no vomiti ng, no dizziness. He does have balance issues at baseline. He denies any previous similar episodes . EKG in the emergency department showed a normal sinus rhythm, no acute ST or T-wave abnormalities and a right bundle branch block. Repeat EKG this morning shows the same. The patient is on room a ir and stable. He is on Xarelto, which is continued. He had Dopplers of the lower extremity done. They are negative. He is not having any dyspnea. The patient is currently ruled out for acute cor onary syndrome. His troponins are negative x3. He will be seen by Dr. Amador for cardiology. If t here is no further evaluation required, discharge later today. He had a 2-D echocardiogram approxim ately 3 months ago, which has not been repeated at this time. ALLERGIES: NO KNOWN ALLERGIES. PAST MEDICAL HISTORY: 1. Cerebellar atrophy with severe imbalance and balance issues, mostly bedridden. 2. Benign prostatic hypertrophy. 3. Venous thromboembolism, status post DVT right lower extremity and on current treatment for exten sive bilateral PEs. He is on Xarelto. PAST SURGICAL HISTORY: 1. 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 Therefore, they had to clip and reduced them t o 5. 2. Status post right inguinal hernia repair remotely. SOCIAL HISTORY: The patient does not smoke or drink alcohol. He lives with his . Again, he is primarily bedridden. He has ongoing physical therapy secondary to severe imbalance and cerebellar issues, he uses a walker at best. REVIEW OF SYSTEMS: As per HPI. The patient denies any cough or recent URI. He does not even remem latrice his last admission 3 months ago with his pulmonary emboli at this point. OUTPATIENT MEDICATIONS: 1. Xarelto 20 mg p.o. at bedtime. 2. Fish oil 1 tab p.o. b.i.d. 3. Aspirin 81 mg p.o. daily. 4. Lactinex 1 packet p.o. daily. 5. MiraLax 17 grams p.o. daily. 6. Vitamin D3 5000 units p.o. daily. 7. Vitamin B12 1000 mcg p.o. daily. 8. Avodart 0.5 mg p.o. daily. 9. Melatonin 3 mg p.o. at bedtime. 10. Coenzyme Q 60 mg p.o. daily. PHYSICAL EXAMINATION: VITAL SIGNS: Temperature is 98.1, heart rate of 67, sinus rhythm on telemetry, blood pressure is 11 2/64 the patient is satting 95% on room air. His in the bed. Respiratory rate of 20. GENERAL: He is alert. He is oriented at least x2. Again, he does not remember his previous hospit alization. He is aware to himself and his . HEENT: Pupils are equally round and reactive to light. He seems to have an ongoing nystagmus which is chronic, probably related to recent chronic cerebellar atrophy. NECK: No JVD, no thyromegaly noted. HEART: He does have a history of thyroid cyst. HEART: Regular rate and rhythm. No murmur, rubs, or gallops. LUNGS: Clear to auscultation bilaterally. ABDOMEN: Soft, nontender, nondistended. Bowel sounds are present. EXTREMITIES: No edema, clubbing or cyanosis. He has mild muscle atrophy, most likely related to hi s inactivity and bedridden most of the time. NEUROLOGICAL: Exam very limited, but again the patient is noted to have ongoing baseline nystagmus and severe imbalance. LABORATORY DATA: White blood cell count is 5.7, hemoglobin 12.5, hematocrit 37.6, platelet count of 262. Chemistry with a sodium of 143, potassium 3.9, chloride 105, bicarbonate 28, BUN 13, creatini ne 0.79, glucose of 92, calcium of 8.2, phosphorus 2.2. LFTs within normal. Cardiac enzymes are ne gative x3 with troponin less than 0.012 and fasting lipid panel is stable. INR 1.70 on admission. RADIOLOGICAL DATA: Chest x-ray shows no acute cardiopulmonary disease and DVT and Doppler of the lo wer extremity are negative for DVT at this point. EKG again shows normal sinus rhythm. This morning with a right bundle branch block, no acute change s. ASSESSMENT AND PLAN: This is a 66-year-old male with: 1. Episode of chest pain resolved yesterday prior to presentation to the ER, unclear and seems to b e atypical, based on the associated symptoms and data so far. I have discussed the case with Dr. Robin orellana. He will see the patient. A 2-D echocardiogram was done 3 months ago. Therefore, not repeate d at this point. Depending on further course of treatment, the patient may need a stress test. If not, he will be discharged and have outpatient followup if possible. Will continue his current medi cation including anticoagulation for his venous thromboembolism. 2. Venous thromboembolism with right lower extremity deep venous thrombosis and bilateral extensive pulmonary emboli. The patient is on Xarelto and seems to be well responsive to it. His Dopplers of the lower extremity shows that there is no DVT remaining and his respiratory status is stable whi le on anticoagulation that he needs to stay on at least for another 6 months at this point. 3. Benign prostatic hypertrophy. Continue Avodart. 4. Hyperlipidemia: He is on [place] 3 fish oil already. 5. Prophylaxis. The patient is already on Xarelto and I have added Pepcid for GI prophylaxis at th is point. DISPOSITION: The patient is admitted on telemetry observation. Awaiting cardiology evaluation for further discharge planning and disposition. Dictated By: TED BUCKLEY/MONIE Conf#: [id number] DID#: [id number]
--- NOTE | 2017-02-03 11:02 | PDOCDIS ---
Discharge Instructions CONDITION Patient Condition: Stable HOME CARE INSTRUCTIONS: Diet Instructions: Low Fat /CholesterolSpecial Diet: resume home diet ACTIVITY: Activity Restrictions: Slowly Increase Activity FOLLOW UP/APPOINTMENTS Appointments follow up with PCP within 1 week Follow up with Cardiology outpatient as needed TED ROSE February 03, 2017 11:02
[2017-02-03] MEDS ORDERED: FAMO20TA18 PO (11:03)
--- NOTE | 2017-02-03 13:37 | CONS ---
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 Unfortunately is unable to characterize the pain. He has had no further episodes since then. Serial cardiac enzymes remain negative, echocardiogram recently done with preserved ejection fraction. No significant ischemic abnormalities on ECG. Given patient with no further symptoms and negative enzymes, no further inpatient cardiac workup needed at the current time. Continue anticoagulation for pulmonary emboli management. Consultation Date/Type/Reason Admit Date/Time February 02, 2017 at 19:49 Type of Consultation: cv Reason for Consultation Chest pain Hx of Present Illness This is a 66-year-old male with past medical history of DVT and pulmonary emboli currently on anticoagulation, cerebral atrophy who presents with chest pain. Patient states he had chest pain yesterday. Is unsure how long it lasted. He was lying down in bed. There was no shortness of breath, nausea or sweating. He has had no further episodes since then. He is unsure the characteristics of the chest pain. Patient tells me he is able to ambulate but with significant difficulty and minimally. He denies exertional chest pain or shortness of breath. Denies any abdominal pain, nausea. He denies any further episodes of chest pain since his admission. 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 Family History Significant Family History: no pertinent family hx Social History Smoking Status: Former smoker Other Social History Lives at home Exam/Review of Systems Vital Signs Vitals Vital Signs Date Time Temp Pulse Resp B/P Pulse Ox O2 Delivery O2 Flow Rate FiO2 02/03/17 12:22 88 02/03/17 11:33 97.6 19 109/69 94 02/02/17 21:00 Room Air Intake and Output 02/02/17 02/02/17 02/03/17 14:59 22:59 06:59 Intake Total 240 ml Output Total 300 ml Balance -60 ml Exam No apparent distress, follows commands, slow in responding Constitutional: alert, oriented Head: normocephalic Respiratory: other (Coarse breath sounds bilaterally, no wheezing) Cardiovascular: other (S1-S2 heard), regular rate and rhythm, systolic murmur Gastrointestinal: bowel sounds, non-tender, other (No guarding), soft Extremities: edema (Trace) Results Result Diagram: 02/03/17 0625 02/03/17 0623 Results 24 hrs Laboratory Tests Test 02/02/17 18:35 02/03/17 00:18 02/03/17 06:23 02/03/17 06:25 White Blood Count 7.4 5.7 # Red Blood Count 4.52 L 4.27 L Hemoglobin 13.7 L 12.5 L Hematocrit 39.7 L 37.6 L Mean Corpuscular Volume 87.8 88.1 Mean Corpuscular Hemoglobin 30.3 29.3 Mean Corpuscular Hemoglobin Concent 34.5 33.2 Red Cell Distribution Width 13.2 13.3 Platelet Count 267 262 Mean Platelet Volume 9.2 # 9.4 Neutrophils % 65.5 50.6 Lymphocytes % 22.7 35.1 Monocytes % 8.8 9.6 Eosinophils % 2.4 3.8 Basophils % 0.5 0.7 Nucleated Red Blood Cells % 0.0 0.0 Neutrophils # 4.8 2.9 Lymphocytes # 1.7 2.0 Monocytes # 0.7 0.6 Eosinophils # 0.2 0.2 Basophils # 0.0 0.0 Nucleated Red Blood Cells # 0.0 0.0 Prothrombin Time 20.1 #H Prothrombin Time Ratio 1.6 INR International Normalized Ratio 1.70 Activated Partial Thromboplast Time 36.5 H Sodium Level 137 143 Potassium Level 4.0 3.9 Chloride Level 99 105 Carbon Dioxide Level 27 28 Anion Gap 15 14 Blood Urea Nitrogen 14 13 Creatinine 0.70 0.79 Glucose Level 93 92 Calcium Level 8.9 8.9 Troponin I < 0.012 < 0.012 < 0.012 Creatine Kinase 75 56 Creatine Kinase Index 2.1 2.2 Creatinine Kinase MB (Mass) 1.59 1.23 Magnesium Level 2.2 Total Bilirubin 0.6 Direct Bilirubin 0.00 Indirect Bilirubin 0.6 Aspartate Amino Transf (AST/SGOT) 16 Alanine Aminotransferase (ALT/SGPT) 26 Alkaline Phosphatase 42 Total Protein 6.0 L Albumin 3.0 L Globulin 3.00 Albumin/Globulin Ratio 1.00 Triglycerides Level 118 Cholesterol Level 127 LDL Cholesterol, Calculated 64 HDL Cholesterol 39 Cholesterol/HDL Ratio 3.2 Medications Medications Current Medications Ondansetron HCl (Zofran Inj) 4 mg Q6H PRN IV NAUSEA AND/OR VOMITING; Start 02/02 at 20:00 Nitroglycerin (Nitroglycerin (Sl Tab) 0.4 Mg) 1 tab Q5M PRN SL CHEST PAIN; Start 02/02/17 at 20:00 Acetaminophen (Tylenol Tab) 650 mg Q6H PRN PO PAIN LEVEL 1-3 OR FEVER; Start at 20:00 Acetaminophen/ Hydrocodone Bitart ([place] (5/325)) 1 tab Q6H PRN PO PAIN LEVEL 4 -6; Start 02/02/17 at 20:00 Acetaminophen/ Hydrocodone Bitart ([place] (5/325)) 2 tab Q6H PRN PO PAIN LEVEL 7 -10; Start 02/02/17 at 20:00 Docusate Sodium (Colace) 100 mg Q12H PRN PO CONSTIPATION; Start 02/02/17 at 20: 00 Magnesium Hydroxide (Milk Of Mag) 30 ml DAILY PRN PO CONSTIPATION; Start at 20:00 Bisacodyl (Dulcolax Supp) 10 mg DAILY PRN [place] CONSTIPATION; Start 02/02/17 at 20: 00 Famotidine (Pepcid) 20 mg Q12 PO Last administered on 02/03/17 09:23; Admin Dose 20 MG; Start 02/02/17 at 21:00 Aspirin (Halfprin) 81 mg DAILY PO Last administered on 02/03/17:23; Admin Dose 81 MG; Start 02/03/17 at 09:00 Cholecalciferol (Vitamin D) 5,000 unit DAILY PO Last administered on 02/03/17:23; Admin Dose 5,000 UNIT; Start 02/03/17 at 09:00 Cyanocobalamin (Vitamin B12) 1,000 mcg DAILY PO Last administered on 02/03/17 09:23; Admin Dose 1,000 MCG; Start 02/03/17 at 09:00 Dutasteride (Avodart) 0.5 mg DAILY PO Last administered on 02/03/17:23; Admin Dose 0.5 MG; Start 02/03/17 at 09:00 Polyethylene Glycol (Miralax) 17 gm DAILY PO Last administered on 02/03/17: 23; Admin Dose 17 GM; Start 02/03/17 at 09:00 Fish Oil (Fish Oil) 1,000 mg BID PO Last administered on 02/03/17t 09:23; Admin Dose 1,000 MG; Start 02/02/17 at 21:30 Procedures Procedures ECG demonstrates sinus rhythm at 76 bpm, right bundle branch block with QRS 134 ms, nonspecific ST-T abnormality Tyrell Amador DO February 03, 2017 13:36
[2017-02-03] MEDS: RIVAROXABAN 20 MG TABLET PO SCH (17:50)
[2017-02-03] MEDS ORDERED: RIVAROXABAN 20 MG TABLET PO SCH (18:00)
--- NOTE | 2017-02-04 12:27 | DS ---
DATE OF ADMISSION: 02/02/2017 DATE OF DISCHARGE: 02/03/2017 CONSULTANTS ON THIS ADMISSION: Dr. Amador CHIEF COMPLAINT ON ADMISSION: Chest pressure. BRIEF HISTORY OF PRESENT ILLNESS: This is a 66-year-old male with history of benign prostatic hyper trophy and also severe cerebral atrophy with severe balance issues and mostly bedbound, no pulmonary embolism and venous thromboembolism diagnosed approximately 3 months ago, has been compliant with a nticoagulation, brought into the emergency department after he had an episode of chest pressure. Ac cording to the family 2 hours, pressure-like, intermittent with no associated symptoms. All symptom s were resolved by the time of presentation. The patient was admitted to telemetry observation for rule out acute coronary syndrome. HOSPITAL COURSE: The patient had serial cardiac enzymes that were negative x3. He already had an e cho done previously which is within normal. EKG: No signs of ischemia, according to Dr. Amador. T herefore, no further studies were needed, and the patient was cleared for discharge from cardiology standpoint. He had a repeat Doppler of his lower extremities that was negative for DVT on this admi ssion. He is, therefore, is to stay on his Xarelto as previously prescribed at least for another 6 months, and likely will need a prophylactic dose after that as he is high risk for venous thromboemb olism. This was communicated to the and patient was also put on H2 blockers, Pepcid, in case gaby john does have some mild gastroesophageal reflux disease. DISPOSITION: Discharge home. DISCHARGE CONDITION: Stable. DISCHARGE DIET: Resume home diet. DISCHARGE ACTIVITY: Resume home activity. FOLLOWUP: The patient is to follow up with his primary care physician within 1 to 2 weeks. DISCHARGE DIAGNOSES: 1. Atypical chest pain. 2. Venous thromboembolism with pulmonary emboli. 3. Benign prostatic hypertrophy. 4. Hyperlipidemia. 5. Severe cerebellar atrophy with abnormal gait and mostly sedentary. DISCHARGE MEDICATIONS: 1. Pepcid 20 mg b.i.d. 2. Lactinex 1 packet daily. 3. Aspirin 81 mg daily. 4. Vitamin D3 5000 units daily. 5. Vitamin B12 1000 mcg daily. 6. Avodart 0.5 mg daily. 7. Melatonin 3 mg p.o. at bedtime. 8. Fish oil Rogers 3 one capsule p.o. b.i.d. 9. MiraLax 17 g daily. 10. Coenzyme Q 60 mg p.o. daily. 11. Xarelto 20 mg p.o. at bedtime. Dictated By: TED BUCKLEY/MONIE Conf#: [id number] DID#: [id number]
== END 2017-02-03 19:17 | disposition home or self-care (01) ==
LOC: E/R 16:40 → UNDOADMOB 19:49 → TEL 19:49 → UNDODISOB 02-03 19:17
PROVIDERS: ADMIT Internal Medicine; ATTEND Internal Medicine
DX: R07.89 Other chest pain (principal); N40.0 Benign prostatic hyperplasia without lower urinary tract symptoms; I10 Essential (primary) hypertension; E78.5 Hyperlipidemia, unspecified; G31.9 Degenerative disease of nervous system, unspecified; R26.9 Unspecified abnormalities of gait and mobility; Z86.711 Personal history of pulmonary embolism; Z86.718 Personal history of other venous thrombosis and embolism; Z79.01 Long term (current) use of anticoagulants; Z79.82 Long term (current) use of aspirin; Z88.8 Allergy status to other drugs, medicaments and biological substances
CPT/HCPCS: 36415; 71010; 80048; 80053; 80061; 82550; 82553; 83735; 84484; 85025; 85610; 85730; 93005; 93970; 99285; G0378; J7040

== ENCOUNTER 2017-03-16 22:30 | Observation (INO) | payer OTHER ==
[~2017-03-16] VITALS: Ht 177.8 cm; Wt 85.5 kg
[~2017-03-16 22:30] MED LIST changes: +ASPI-664 PO; +CHOL500010 PO; +CYAN500T46 PO; +FAMO20TA18 PO; +LACTINEXG PO; +MELA3TAB17 PO; +OMEG1CAP90 PO; -PANT40TA4 PO; +POLY17PO3 PO; -RIVA15TA PO; +RIVA20TA PO; +UBID30CA12 PO
[2017-03-16 22:51] VITALS: Ht 177.8 cm; Wt 85.5 kg
[2017-03-16] MEDS ORDERED: SOD CHLORIDE 0.9% 500 ML IV STA (23:22)
[2017-03-17 00:40] LABS: ADD SCAN DIFF NO
[2017-03-17 00:49] LABS: BASOPHILS % 0.3 % (0.0-2.0); EOSINOPHILS # 0.1 10^3/ul (0.0-0.5); EOSINOPHILS % 0.9 % (0.0-7.0); HEMATOCRIT 41.6 % (42.0-52.0); HEMOGLOBIN 13.7 g/dl (14.0-18.0); LYMPHOCYTES # 1.9 10^3/ul (0.8-2.9); MEAN CORPUSCULAR HEMOGLOBIN 29.3 pg (29.0-33.0); MEAN CORPUSCULAR HGB CONC 32.9 g/dl (32.0-37.0); MEAN CORPUSCULAR VOLUME 89.1 fl (82.0-101.0); MEAN PLATELET VOLUME 11.5 fl (7.4-10.4); MONOCYTE # 1.2 10^3/ul (0.3-0.9); MONOCYTES % 8.4 % (0.0-11.0); NEUTROPHIL # 11.1 10^3/ul (1.6-7.5); NEUTROPHILS % 77.1 % (39.0-77.0); PLATELET COUNT 175 10^3/UL (140-415); RED BLOOD COUNT 4.67 10^6/ul (4.70-6.10); RED CELL DISTRIBUTION WIDTH 13.6 % (11.5-14.5); WHITE BLOOD COUNT 14.4 10^3/ul (4.8-10.8)
[2017-03-17 00:53] LABS: ADD UMIC YES; UR BILIRUBIN (Dip) 1+ (NEGATIVE); UR BLOOD (Dip) 3+ (NEGATIVE); UR CLARITY CLOUDY (CLEAR); UR COLOR BROWN (YELLOW); UR GLUCOSE (Dip) NEGATIVE (NEGATIVE); UR KETONES (Dip) NEGATIVE (NEGATIVE); UR LEUKOCYTE ESTERASE (Dip) 3+ (NEGATIVE); UR NITRITE (Dip) NEGATIVE (NEGATIVE); UR TOTAL PROTEIN (Dip) 4+ (NEGATIVE); UR UROBILINOGEN (Dip) 0.2 E.U./dL (0.1-1.0)
[2017-03-17 01:06] LABS: ALBUMIN 4.6 g/dl (3.3-4.9); ALBUMIN/GLOBULIN RATIO 1.35; BILIRUBIN,INDIRECT 0.3 mg/dl (0-1.1); BILIRUBIN,TOTAL 0.3 mg/dl (0.2-1.3); CALCIUM 9.5 mg/dl (8.4-10.2); CREATININE 0.89 mg/dl (0.61-1.24); POTASSIUM 4.4 mmol/L (3.5-5.1)
[2017-03-17 01:35] LABS: ICTOTEST NEGATIVE (NEGATIVE)
[2017-03-17 01:36] LABS: UR BACTERIA FEW /HPF (NONE SEEN); URINE RBCS >200 /HPF (0)
--- NOTE | 2017-03-17 01:37 | RADRPT ---
PROCEDURE: Chest. CLINICAL INDICATION: Chest pain. TECHNIQUE: Single frontal view of the chest was obtained. COMPARISON: 10/17/2016. FINDINGS: The cardiac silhouette is magnified. The aortic arch is unremarkable. There are hypoventilatory ch anges with increased interstitial markings bilaterally. There is no focal consolidation, vascular c ongestion or pleural effusion. There is no pneumothorax. There are multiple old right-sided rib fra ctures. IMPRESSION: Hypoventilatory changes with increased interstitial markings bilaterally. Multiple old right-sided rib fractures. .Devon Bustamante MD, MD Date Time Electronically viewed and signed by .Devon Bustamante MD, MD on 03/17/2017 01:37 .T/
--- NOTE | 2017-03-17 01:46 | RADRPT ---
PROCEDURE: CT Abdomen and pelvis without contrast. CLINICAL INDICATION: Abdominal pain. TECHNIQUE: CT scan of the abdomen and pelvis was performed on a multi-detector high-resolution CT scanner. Contiguous axial images were obtained from the lung bases to the ischial tuberosities wit hout intravenous contrast. Coronal and sagittal reformatted images were also obtained. Images were reviewed on the PACS workstation. One or more of the following dose reduction techniques were used: - Automated exposure control. - Adjustment of the mA and/or kV according to patient size. - Use of iterative reconstruction technique. Exam CTD/vol = 15.81 mGy. Total exam DLP = 1014.71 mGy-cm. COMPARISON: None. FINDINGS: Evaluation of the lung bases demonstrates mild bibasilar atelectasis. Abdomen: The liver is normal in size. There is no focal mass or dilatation of the biliary tree. T he gallbladder is not distended. The spleen, pancreas and bilateral adrenal glands are within clint l limits. Bilateral kidneys are normal in size small cortical cysts. There is a 3 mm calculus with in the upper pole of the right kidney. There is a 1 mm calculus within the mid right kidney. There is a 3 mm calculus within the lower pole of the left kidney. There is no radiopaque ureteral calcu joy identified. There is no hydronephrosis or hydroureter. There is no retroperitoneal adenopathy. The abdominal aorta is of normal caliber with scattered atherosclerotic calcifications. There is a small umbilical hernia containing fat. There is no bowel obstruction or free air. A nor mal appendix is identified. There is no diverticulosis or diverticulitis. There is mild stranding of the central mesenteric fat. There is no ascites. Pelvis: The bladder contains a Long catheter and demonstrates moderate wall thickening. The prost ate is moderately enlarged. There is a small left inguinal hernia containing fat. There are small inguinal lymph nodes bilaterally. There is no significant pelvic free fluid. Evaluation of the osseous structures demonstrates no suspicious lytic or blastic lesion. There is keith bcutaneous stranding within the left posterolateral abdominal wall with a focal subcutaneous density measuring 2.5 x 1.3 cm. There are degenerative changes of the spine. IMPRESSION: Subcutaneous stranding within the left posterolateral abdominal wall with focal subcutaneous density could represent hemorrhage and small hematoma. Clinical correlation is needed. Moderate bladder wall thickening could be due to underdistension or represent cystitis. Clinical co rrelation is needed. Moderately enlarged prostate. Bilateral nonobstructing renal calculi. Mild stranding of the central mesenteric fat represents nonspecific mesenteritis. Mild bibasilar atelectasis. Vascular calcifications reflective of atherosclerosis. Small umbilical hernia containing fat. .Devon Bustamante MD, Date Time Electronically viewed and signed by .Devon Bustamante MD, on 03/17/2017 01:46 .T/
[2017-03-17] MEDS ORDERED: LEVO25PO MC (01:53)
[2017-03-17] MEDS ORDERED: PAPA1TAB10 PO (01:53)
--- NOTE | 2017-03-17 03:21 | ERA ---
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 Apparently he fell earlier today does not know whether or not he passed out. He said this happened when he tried to go to the bathroom. No fevers no chills. No other current complaints. ROS All systems reviewed and are negative except as per history of present illness. Medications Home Meds Active Scripts Famotidine* (Famotidine*) 20 Mg Tablet, 20 MG PO Q12 for 30 Days, TAB 3 Refills Prov:TED ROSE F 02/03/17 Reported Medications Papaya (Papaya Enzyme) 1 Each Tablet, 1 EACH PO, TAB 03/17/17 Levocarnitine (l-Carnitine) 25 Gm Powder, 500 MG MC DAILY 03/17/17 Melatonin (Melatonin) 3 Mg Tablet.sa, 3 MG PO HS, TAB.SA 02/02/17 Acidophilus-Bulgaricus* (BD Lactinex*) 1 Pkt Packet, 1 PKT PO 6 DAILY, PACKET 02/02/17 Cyanocobalamin* (Vitamin B12*) 500 Mcg Tab, 1000 MCG PO DAILY, TAB 02/02/17 Cholecalciferol (Vitamin D3) 5,000 Unit Tablet, 5000 UNIT PO DAILY, TAB 02/02/17 Lopeno-3 Fatty Acids/Fish Oil (Lopeno 3 1,000 mg Softgel) 1 Each Capsule, 1 EACH PO BID, CAP 02/02/17 Ubidecarenone (Coq-10) 30 Mg Capsule, 60 MG PO, CAP 02/02/17 Polyethylene Glycol* (Polyethylene Glycol*) 17 Gm Powd.pack, 17 GM PO DAILY, # 30 PACKET 02/02/17 Rivaroxaban* (Xarelto*) 20 Mg Tablet, 20 MG PO WITH DINNER, TAB 02/02/17 Aspirin* (Aspirin* EC) 81 Mg Tablet.dr, 81 MG PO DAILY, TAB 02/02/17 Dutasteride* (Avodart*) 0.5 Mg Capsule, 0.5 MG PO DAILY, CAP 10/18/16 Allergies Allergies: Coded Allergies: tamsulosin (Unverified Adverse Reaction, Unknown, 03/17/17) PMhx/Soc History of Surgery: Yes (Hernia repair ) Hx Neurological Disorder: Yes Hx Respiratory Disorders: No Hx Cardiac Disorders: Yes (Right Bundle [place] Block) Hx Psychiatric Problems: No Hx Miscellaneous Medical Probl: No Hx Alcohol Use: No Hx Substance Use: No Hx Tobacco Use: No Smoking Status: Never smoker Physical Exam Vitals Vital Signs Date Time Temp Pulse Resp B/P Pulse Ox O2 Delivery O2 Flow Rate FiO2 03/17/17 01:59 78 18 115/74 96 Room Air 03/16/17 22:51 97.9 113 20 118/75 93 Physical Exam Const: [] Head: Atraumatic Eyes: Normal Conjunctiva ENT: Normal External Ears, Nose and Mouth. Neck: Full range of motion..~ No meningismus. Resp: Clear to auscultation bilaterally Cardio: Regular rate and rhythm, no murmurs Abd: Soft, non tender, non distended. Normal bowel sounds Skin: No petechiae or rashes Back: No midline or flank tenderness Ext: No cyanosis, or edema Neur: Awake and alert Psych: Normal Mood and Affect Result Diagram: 03/16/17 2345 03/16/17 2345 Results 24 hrs Laboratory Tests Test 03/16/17 23:45 03/17/17 00:32 White Blood Count 14.410^3/ul Red Blood Count 4.6710^6/ul Hemoglobin 13.7g/dl Hematocrit 41.6% Mean Corpuscular Volume 89.1fl Mean Corpuscular Hemoglobin 29.3pg Mean Corpuscular Hemoglobin Concent 32.9g/dl Red Cell Distribution Width 13.6% Platelet Count 52171^3/UL Mean Platelet Volume 11.5fl Neutrophils % 77.1% Lymphocytes % 13.0% Monocytes % 8.4% Eosinophils % 0.9% Basophils % 0.3% Nucleated Red Blood Cells % 0.0/100WBC Neutrophils # 11.110^3/ul Lymphocytes # 1.910^3/ul Monocytes # 1.210^3/ul Eosinophils # 0.110^3/ul Basophils # 0.010^3/ul Nucleated Red Blood Cells # 0.010^3/ul Sodium Level 140mmol/L Potassium Level 4.4mmol/L Chloride Level 104mmol/L Carbon Dioxide Level 24mmol/L Anion Gap 16 Blood Urea Nitrogen 17mg/dl Creatinine 0.89mg/dl Glucose Level 117mg/dl Calcium Level 9.5mg/dl Total Bilirubin 0.3mg/dl Direct Bilirubin 0.00mg/dl Indirect Bilirubin 0.3mg/dl Aspartate Amino Transf (AST/SGOT) 30IU/L Alanine Aminotransferase (ALT/SGPT) 33IU/L Alkaline Phosphatase 49IU/L Total Protein 8.0g/dl Albumin 4.6g/dl Globulin 3.40g/dl Albumin/Globulin Ratio 1.35 Lipase 85U/L Urine Color BROWN Urine Clarity CLOUDY Urine pH Urine Specific [place] Urine Ketones NEGATIVE Urine Nitrite NEGATIVE Urine Bilirubin 1+ Urine Ictotest NEGATIVE Urine Urobilinogen 0.2 E.U./dL Urine Leukocyte Esterase 3+ Urine Microscopic RBC /HPF Urine Microscopic WBC /HPF Urine Bacteria FEW/HPF Urine Hemoglobin 3+ Urine Glucose NEGATIVE% Urine Total Protein 4+ Current Medications Medications (Trade) Dose Ordered Sig/Aron Route PRN Reason Start Time Stop Time Status Last Admin Dose Admin Sodium Chloride (NS) 500 ml @ 500 mls/hr Q1H STAT IV 03/16/17 23:22 03/17/17 00:21 DC 03/16/17 23:22 Procedures/MDM EKG: Rate/Rhythm: Normal Sinus Rhythm QRS, ST, T-waves: No changes consistent w/ acute ischemia Impression: No evidence of ischemia or arrhythmia Chest X-ray 1V Interpreted by me: Soft Tissue: No acute abnormalities Bones: No acute abnormalities Mediastinum/Cardiac Silhouette/Lungs: No acute abnormalities Patient's syncopal symptoms are unstable at this time and require inpatient workup. No evidence of PE or dissection at this time but occult ischemia or fatal dysrhythmia cannot be ruled out. Patient will be admitted to [facility] physician Departure Diagnosis: Primary Impression: Syncope Qualified Code: R55 - Syncope, unspecified syncope type Additional Impressions: Urinary tract infection Qualified Code: N39.0 - Urinary tract infection with hematuria, site unspecified Urinary retention Condition: Serious TUSHAR BILLINGS Mar 17, 2017 03:21
--- NOTE | 2017-03-17 03:24 | RADRPT ---
PROCEDURE: Noncontrast CT Head. CLINICAL INDICATION: Syncope TECHNIQUE: Noncontrast CT of the head was obtained. The administered radiation dose was CTDI vol = 45 mGy, DLP = 900 mGy-cm. COMPARISON: No pertinent prior examinations were submitted for comparison. FINDINGS: The ventricles and cortical sulci are moderately enlarged. There is mild decreased attenuation with in the periventricular and subcortical white matter compatible with chronic microvascular changes. There is no acute intracranial hemorrhage or extra-axial fluid collection. There is no mass effect . No midline shift is identified. There is no loss of novoa-white differentiation to suggest acute in farction. The orbits are within normal limits. The paranasal sinuses are well aerated. No destructive osseous lesion is identified. IMPRESSION: No acute findings. Moderate diffuse parenchymal volume loss and mild chronic microvascular changes. RPTAT: HIKT .Natan Butts MD, Date Time Electronically viewed and signed by .Natan Butts MD, on 03/17/2017 03:24 .T/
[2017-03-17] MEDS ORDERED: CEFTRIAXONE 1 GM/50 ML (PMX) 50 ML IVPB ONE (03:30)
[2017-03-17] MEDS ORDERED: DOCUSATE SODIUM 100 MG CAP PO PRN (04:30)
[2017-03-17] MEDS ORDERED: ACETAMINOPHEN 325 MG TAB PO PRN (04:30)
[2017-03-17] MEDS ORDERED: BISACODYL 10 MG SUPP PR PRN (04:30)
[2017-03-17] MEDS ORDERED: ONDANSETRON 4 MG INJ IV PRN (04:30)
[2017-03-17] MEDS ORDERED: MAGNESIUM HYDROXIDE 30ML CUP PO PRN (04:30)
[2017-03-17] MEDS ORDERED: NACL 0.9% 3 ML SYG IV SCH (04:30)
[2017-03-17 06:19] LABS: ADD SCAN DIFF NO
[2017-03-17 06:28] LABS: BASOPHILS % 0.3 % (0.0-2.0); EOSINOPHILS # 0.2 10^3/ul (0.0-0.5); EOSINOPHILS % 1.1 % (0.0-7.0); HEMATOCRIT 35.7 % (42.0-52.0); LYMPHOCYTES # 1.3 10^3/ul (0.8-2.9); LYMPHOCYTES % 9.3 % (15.0-51.0); MEAN CORPUSCULAR HEMOGLOBIN 29.8 pg (29.0-33.0); MEAN CORPUSCULAR HGB CONC 33.6 g/dl (32.0-37.0); MEAN CORPUSCULAR VOLUME 88.6 fl (82.0-101.0); MEAN PLATELET VOLUME 9.4 fl (7.4-10.4); MONOCYTE # 1.2 10^3/ul (0.3-0.9); MONOCYTES % 8.5 % (0.0-11.0); NEUTROPHIL # 11.3 10^3/ul (1.6-7.5); NEUTROPHILS % 80.4 % (39.0-77.0); PLATELET COUNT 240 10^3/UL (140-415); RED BLOOD COUNT 4.03 10^6/ul (4.70-6.10); RED CELL DISTRIBUTION WIDTH 13.3 % (11.5-14.5); WHITE BLOOD COUNT 14.1 10^3/ul (4.8-10.8)
[2017-03-17 07:00] LABS: ALBUMIN 3.9 g/dl (3.3-4.9); ALBUMIN/GLOBULIN RATIO 1.56; BILIRUBIN,INDIRECT 0.3 mg/dl (0-1.1); BILIRUBIN,TOTAL 0.3 mg/dl (0.2-1.3); CALCIUM 8.5 mg/dl (8.4-10.2); CREATININE 0.74 mg/dl (0.61-1.24); POTASSIUM 3.7 mmol/L (3.5-5.1); TOTAL PROTEIN 6.4 g/dl (6.1-8.1)
[2017-03-17] MEDS: DUTASTERIDE 0.5 MG CAP PO SCH (10:42)
[2017-03-17] MEDS: CHOLECALCIFEROL 1,000 UNIT TAB PO SCH ×2 (10:42→12:58)
[2017-03-17] MEDS: FISH OIL 1,000 MG CAP PO SCH ×2 (10:43→12:58)
[2017-03-17] MEDS: ASPIRIN (EC) 81 MG TAB PO SCH ×2 (10:43→12:58)
[2017-03-17] MEDS: POLYETHYLENE GLYCOL 17 GM PACKET PO SCH ×2 (10:43→12:58)
[2017-03-17 11:34] VITALS: BP 130/82; PULSE 88; RESP 16
[2017-03-17 12:22] VITALS: PULSE 71; PULSE 83
[2017-03-17] MEDS: SOD CHLORIDE 0.9% 1,000 ML IV SCH ×3 (12:57→21:13)
[2017-03-17] MEDS: FAMOTIDINE 20 MG TAB PO SCH ×2 (12:58→21:13)
[2017-03-17] MEDS: CYANOCOBALAMIN 500 MCG TAB PO SCH (12:59)
[2017-03-17] MEDS: PANTOPRAZOLE (EC) 40 MG TAB PO SCH (13:00)
--- NOTE | 2017-03-17 15:57 | HP ---
DATE OF ADMISSION: 03/17/2017 ADMITTING PHYSICIAN: Dr. Maddox CHIEF COMPLAINT ON ADMISSION: Status post fall and inability to urinate. HISTORY OF PRESENT ILLNESS: This is a 66-year-old male with history of severe cerebellar atrophy wi th abnormal gait and multiple falls, also no known venous thromboembolism with pulmonary emboli diag nosed approximately 6 months ago, and benign prostatic hypertrophy who was brought into the emergenc y department by his due to multiple episodes of fall and does complain of inability to urinate. According to the , the patient has been at his baseline. He has been having episodes of falls , he had 1 other day before yesterday where he lost his balance, was able to be helped up. He actua lly did ambulate with his , a little bit, but apparently last night he had another episode of fa ll again and at this time he says seems to have bruised up the left side of his abdomen when he fell at that time. Also, according to the , when the patient was taken to the restroom to urinate, he was noted to have blood on his diaper. The brought him to the emergency department. In the emergency department, the patient was complaining of difficulty urinating. A Long catheter was pl aced. He had some mild hematuria which is now resolved. He is on Xarelto for anticoagulation curre ntly. According to the , also, the patient complained of 1 episode of shortness of breath which resolved by the time he came to the emergency department. The patient has been having urinary freq uency chronically, due to benign prostatic hypertrophy. He has been on Avodart and HAS ALLERGY TO F ARJUN. In the ER, he was noted to have elevated white blood cell count. Urinalysis was done and hi s UA came back positive. After discussion with the . The patient did not pass out. It is conf irmed he did not have a syncopal episode. He had a loss of balance with fall and trauma to the site of his abdomen. I did explain to the , likely when he fell, he must have traumatized either hi s bladder or urethra and that may have precipitated the episode of hematuria or bleeding seen in his pants. The patient this morning he is not aware of most of the events last night. His short-term memory is very short. He denies any pain. His Long catheter again has clear urine coming out. He has been admitted to telemetry. His urinalysis was positive. Therefore, he has been started on Ro cephin and maintained on IV fluids for now. ALLERGIES: FLOMAX. PAST MEDICAL HISTORY: 1. Cerebral atrophy with severe imbalance and balance issues with episodes of multiple falls before . 2. Venous thromboembolism, status post DVT of right lower extremity and extensive bilateral pulmona ry emboli, also noted on his last visit in December of 2016. His Dopplers of the lower extremities piotr wed resolution of the DVTs, but he is still on Xarelto for treatment of his pulmonary emboli. 3. Benign prostatic hypertrophy. PAST SURGICAL HISTORY: 1. 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 Therefore, they had to clip and reduced them to 5. 3. Status post right inguinal hernia repair remotely. SOCIAL HISTORY: The patient does not smoke or drink alcohol. He lives with his . He is depend ent on his . He does ambulate some at home. He does have balance issues and unfortunately, epi sodes of falls, but usually he does not have major trauma, according to the . He has ongoing ph ysical therapy currently and at best, he uses a walker. REVIEW OF SYSTEMS: As per HPI. The patient this morning is denying all complaints. OUTPATIENT MEDICATIONS: 1. Xarelto 20 mg p.o. at bedtime. 2. Raymond 3, 1 tab p.o. b.i.d. 3. Aspirin 81 mg daily. 4. Lactinex 1 packet p.o. daily. 5. Pepcid 20 mg p.o. b.i.d. 6. MiraLax 17 grams p.o. daily. 7. Vitamin D3 5000 units daily. 8. Vitamin B12 1000 mcg daily. 9. Avodart 0.5 mg daily. 10. Levocarnitine 500 mg daily. 11. Melatonin 3 mg p.o. at bedtime. 12. Papaya enzyme. 13. Coenzyme Q10, 60 mg p.o. daily. PHYSICAL EXAMINATION: VITAL SIGNS: Temperature is 99.0, heart rate of 71, respiratory rate of 16, blood pressure is 130/8 2. Patient is satting 94% on room air. GENERAL: He is alert and oriented x1 to 2 at best. He is in no acute distress. HEENT: Pupils are equally round and reactive to light. Extraocular muscles are intact. Anicteric sclerae. NECK: No JVD, no thyromegaly noted. HEART: Regular rate and rhythm. No murmur, rubs, or gallops. LUNGS: Clear to auscultation bilaterally. ABDOMEN: Soft, nontender, nondistended. He does have a bruise on the left flank area which is bein g monitored. He has a couple ecchymoses also. EXTREMITIES: He does have some mild muscle atrophy, otherwise no edema, clubbing or cyanosis. NEUROLOGIC: Again, he has severe imbalance and he also has trouble focusing at times, slow to respo nd to questions, which is his baseline. LABORATORY DATA: White blood cell count is 14.1, hemoglobin 12.0, hematocrit 88.6, platelet count o f 240, neutrophils of 80% . Chemistry with a sodium of 138, potassium 3.7, chloride 106, bicarbonate 24, BUN 14, creatinine 0.74, glucose of 105, calcium of 8.5, magnesium of 2.0, total bilirubin 0.3 , AST 28, ALT 33, alkaline phosphatase of 42. Troponin is less than 0.012 x1, total protein of 6.4 , albumin of 3.9. PT, PTT, INR are not checked. They will be checked at this time. Lipase of 85. Urinalysis is cloudy with 3+ leukocyte esterase, negative nitrites. RADIOLOGICAL DATA: 1. Chest x-ray shows hypoventilatory changes with increased interstitial markings bilaterally, mult iple old right-sided rib fractures. 2. CAT scan of the abdomen and pelvis shows subcutaneous stranding within the left posterolateral a bdominal wall with focal subcutaneous density, could represent hemorrhage or small hematoma, moderat e bladder wall thickening, moderately enlarged prostate, bilateral nonobstructing renal calculi, sma ll umbilical hernia containing fat. 3. CAT scan of the brain shows no acute findings. EKG shows a normal sinus rhythm, no acute ST or T-wave abnormalities. ASSESSMENT AND PLAN: This is a 66-year-old male with: 1. Episode of mechanical falls and fall secondary to imbalance with a possible trauma on the left f lank area. The patient is on Xarelto currently and needs anticoagulation, given his pulmonary embol i. Will monitor closely the area of hematoma. Monitor hemoglobin and hematocrit, check INR at this point. Pain control as needed. 2. Urinary tract infection. Continue Rocephin. Follow up on urine culture, which is still pending currently. For final antibiotics at discharge. 3. Severe cerebral atrophy with severe balance issues and multiple falls. Physical therapy has bee n ordered and patient is getting physical therapy as an outpatient. 4. Benign prostatic hypertrophy with reported urinary incontinence, possible retention. He has a F oley catheter in place currently. Will attempt discontinuing the Long catheter. The patient is on Avodart. We will monitor his urine output. 5. Prophylaxis. The patient is on Xarelto at this point, no need for additional deep vein thrombos is prophylaxis and continue Pepcid for gastrointestinal prophylaxis. DISPOSITION: The patient is admitted on telemetry, possible discharge in the next 24 to 48 hours. Dictated By: TED BUCKLEY/MONIE Conf#: [id number] DID#: [id number]
[2017-03-17 16:35] VITALS: PULSE 78
[2017-03-17 16:47] LABS: INR 1.17; PT RATIO 1.2
[2017-03-17 16:48] LABS: PARTIAL THROMBOPLASTIN TIME 31.1 Sec (25.0-35.0)
[2017-03-17] MEDS: RIVAROXABAN 20 MG TABLET PO SCH (18:07)
[2017-03-17] MEDS: LACTOBACILLUS RHAMNOSUS CAP PO SCH ×2 (18:07→21:13)
[2017-03-17 20:30] VITALS: PULSE 90
[2017-03-17] MEDS ORDERED: NON-FORMULARY/PATIENT OWN MED (Melatonin 3 MG) PO SCH (21:00)
[2017-03-17 21:05] VITALS: BP 135/73; RESP 17
[2017-03-18] VITALS (12 sets, daily range): BP systolic 105–156; BP diastolic 65–79; PULSE 78–94; RESP 17–20
[2017-03-18] MEDS ORDERED: CEFTRIAXONE 1 GM/50 ML (PMX) 50 ML IVPB SCH (03:30)
[2017-03-18] MEDS: PANTOPRAZOLE (EC) 40 MG TAB PO SCH (05:47)
[2017-03-18 06:41] LABS: ADD SCAN DIFF NO
[2017-03-18 06:58] LABS: BASOPHIL # 0.1 10^3/ul (0.0-0.1); BASOPHILS % 0.3 % (0.0-2.0); EOSINOPHILS # 0.1 10^3/ul (0.0-0.5); EOSINOPHILS % 0.4 % (0.0-7.0); HEMATOCRIT 36.4 % (42.0-52.0); HEMOGLOBIN 12.2 g/dl (14.0-18.0); LYMPHOCYTES # 1.5 10^3/ul (0.8-2.9); LYMPHOCYTES % 7.4 % (15.0-51.0); MEAN CORPUSCULAR HEMOGLOBIN 29.6 pg (29.0-33.0); MEAN CORPUSCULAR HGB CONC 33.5 g/dl (32.0-37.0); MEAN CORPUSCULAR VOLUME 88.3 fl (82.0-101.0); MEAN PLATELET VOLUME 9.5 fl (7.4-10.4); MONOCYTE # 1.5 10^3/ul (0.3-0.9); MONOCYTES % 7.3 % (0.0-11.0); NEUTROPHIL # 16.7 10^3/ul (1.6-7.5); PLATELET COUNT 234 10^3/UL (140-415); RED BLOOD COUNT 4.12 10^6/ul (4.70-6.10); RED CELL DISTRIBUTION WIDTH 13.5 % (11.5-14.5); WHITE BLOOD COUNT 19.9 10^3/ul (4.8-10.8)
[2017-03-18 08:56] LABS: CALCIUM 8.4 mg/dl (8.4-10.2); CREATININE 0.76 mg/dl (0.61-1.24); POTASSIUM 3.8 mmol/L (3.5-5.1)
[2017-03-18 09:13] LABS: PHOSPHORUS 3.6 mg/dl (2.5-4.9)
[2017-03-18] MEDS: CYANOCOBALAMIN 500 MCG TAB PO SCH (09:54)
[2017-03-18] MEDS: FISH OIL 1,000 MG CAP PO SCH ×2 (09:54→21:22)
[2017-03-18] MEDS: DUTASTERIDE 0.5 MG CAP PO SCH (09:54)
[2017-03-18] MEDS: LACTOBACILLUS RHAMNOSUS CAP PO SCH ×2 (09:55→21:22)
[2017-03-18] MEDS: FAMOTIDINE 20 MG TAB PO SCH ×2 (09:55→21:22)
[2017-03-18] MEDS: SOD CHLORIDE 0.9% 1,000 ML IV SCH ×2 (10:52→22:16)
[2017-03-18] MEDS: MEROPENEM 1 GM/100 ML (PMX) 100 ML IVPB SCH ×2 (15:08→22:16)
--- NOTE | 2017-03-18 15:50 | PN ---
Date/Time of Note Date/Time of Note DATE: 03/18/17 TIME: 15:46 Assessment/Plan VTE Prophylaxis VTE Prophylaxis Intervention: other (on Xarelto ) Lines/Catheters [facility] Peripheral IV Urinary Cath still in place: No Assessment/Plan Assessment/Plan 66-year-old male with: 1. Episode of mechanical falls and fall secondary to imbalance with a possible trauma on the left flank area. On Xarelto currently and needs anticoagulation, given his pulmonary emboli H/H stable Pain control as needed. 2. GNR Urinary tract infection. WBC up today, check blood cx and change abx to Meropenem until final cx available 3. Severe cerebral atrophy with severe balance issues and multiple falls. Physical therapy to eval. 4. Benign prostatic hypertrophy with reported urinary incontinence, possible retention. Continue Avodart. S/p urias catheter, removed yesterday, currently with condom cath and good UOP Prophylaxis. The patient is on Xarelto at this point, no need for additional deep vein thrombosis prophylaxis and continue Pepcid for gastrointestinal prophylaxis. DISPOSITION: Telemetry, possible discharge home in the next 24 to 48 hours. Subjective 24 Hr Interval Summary Free Text/Dictation Patient with unchanged clinical status and urine cx with GNR WBC up to 19K today, changing IV abx Left index finger stitches removed Exam/Review of Systems Vital Signs Vitals Vital Signs Date Time Temp Pulse Resp B/P Pulse Ox O2 Delivery O2 Flow Rate FiO2 03/18/17 12:49 78 03/18/17 11:45 98.6 17 131/70 98 03/17/17 11:34 Room Air Intake and Output 03/17/17 03/17/17 03/18/17 15:00 23:00 07:00 Intake Total 550 ml 1360 ml 830 ml Output Total 400 ml 750 ml 1500 ml Balance 150 ml 610 ml -670 ml Exam Constitutional: alert, oriented (x2 at best ) Respiratory: clear to auscultation, normal air movement Cardiovascular: nl pulses, regular rate and rhythm Gastrointestinal: non-tender, soft Musculoskeletal: nl extremities to inspection, other (abnormal gait ) Extremities: normal pulses, other (no edema, clubing or cyanosis, left index finger stiches removed ) Neurological: 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 intact, confused, other (minimally ambulatory ) Results Result Diagram: 6/22/17 0625 6/22/17 0625 Results 24 hrs Laboratory Tests Test 03/17/17 16:06 03/18/17 06:25 Prothrombin Time 15.0 #H Prothrombin Time Ratio 1.2 INR International Normalized Ratio 1.17 Activated Partial Thromboplast Time 31.1 White Blood Count 19.9 #H Red Blood Count 4.12 L Hemoglobin 12.2 L Hematocrit 36.4 L Mean Corpuscular Volume 88.3 Mean Corpuscular Hemoglobin 29.6 Mean Corpuscular Hemoglobin Concent 33.5 Red Cell Distribution Width 13.5 Platelet Count 234 Mean Platelet Volume 9.5 Neutrophils % 84.0 H Lymphocytes % 7.4 L Monocytes % 7.3 Eosinophils % 0.4 Basophils % 0.3 Nucleated Red Blood Cells % 0.0 Neutrophils # 16.7 H Lymphocytes # 1.5 Monocytes # 1.5 H Eosinophils # 0.1 Basophils # 0.1 Nucleated Red Blood Cells # 0.0 Sodium Level 135 Potassium Level 3.8 Chloride Level 104 Carbon Dioxide Level 23 Anion Gap 12 Blood Urea Nitrogen 11 Creatinine 0.76 Glucose Level 107 Calcium Level 8.4 Phosphorus Level 3.6 Magnesium Level 2.0 Medications Medications Current Medications Aspirin (Halfprin) 81 mg DAILY PO Last administered on 03/17/17 12:58; Admin Dose 81 MG; Start 03/17/17 at 09:00 Cholecalciferol (Vitamin D) 5,000 unit DAILY PO Last administered on 03/17/17 12:58; Admin Dose 5,000 UNIT; Start 03/17/17 at 09:00 Cyanocobalamin (Vitamin B12) 1,000 mcg DAILY PO Last administered on 03/18/17 09:54; Admin Dose 1,000 MCG; Start 03/17/17 at 09:00 Dutasteride (Avodart) 0.5 mg DAILY PO Last administered on 03/18/17 09:54; Admin Dose 0.5 MG; Start 03/17/17 at 09:00 Famotidine (Pepcid) 20 mg Q12 PO Last administered on 03/18/17 09:55; Admin Dose 20 MG; Start 03/17/17 at 09:00 Polyethylene Glycol (Miralax) 17 gm DAILY PO Last administered on 03/17/17 12: 58; Admin Dose 17 GM; Start 03/17/17 at 09:00 Fish Oil 1000 mg 1,000 mg BID PO Last administered on 03/18/17 09:54; Admin Dose 1,000 MG; Start 03/17/17 at 09:00 Sodium Chloride (NS) 1,000 ml @ 100 mls/hr Q10H IV Last administered on 10:52; Admin Dose 100 MLS/HR; Start 03/17/17 at 04:21 Ondansetron HCl (Zofran Inj) 4 mg Q6H PRN IV NAUSEA AND/OR VOMITING; Start at 04:30 Acetaminophen (Tylenol Tab) 650 mg Q6H PRN PO PAIN LEVEL 1-3 OR FEVER; Start at 04:30 Docusate Sodium (Colace) 100 mg Q12H PRN PO CONSTIPATION Last administered on 10:41; Admin Dose 100 MG; Start 03/17/17 at 04:30 Magnesium Hydroxide (Milk Of Mag) 30 ml DAILY PRN PO CONSTIPATION; Start at 04:30 Bisacodyl (Dulcolax Supp) 10 mg DAILY PRN [place] CONSTIPATION; Start 03/17/17 at 04 :30 Pantoprazole (Protonix Tab) 40 mg DAILY@06 PO Last administered on 03/18/17 05 :47; Admin Dose 40 MG; Start 03/17/17 at 06:00 Lactobacillus Acidophilus/ Rhamnosus 1 cap 1 cap BID PO Last administered on 09:55; Admin Dose 1 CAP; Start 03/17/17 at 09:00 Meropenem (Merrem 1 Gm/100 ml (Pmx)) 100 ml @ 200 mls/hr Q8 IVPB Last administered on 03/18/17 15:08; Admin Dose 200 MLS/HR; Start 03/18/17 at 14:00 TED ROSE Mar 18, 2017 15:50
[2017-03-18] MEDS: RIVAROXABAN 20 MG TABLET PO SCH (17:38)
[2017-03-19] VITALS (10 sets, daily range): BP systolic 107–140; BP diastolic 65–99; PULSE 75–90; RESP 17–20
[2017-03-19] MEDS: PANTOPRAZOLE (EC) 40 MG TAB PO SCH (05:51)
[2017-03-19] MEDS: MEROPENEM 1 GM/100 ML (PMX) 100 ML IVPB SCH ×2 (05:51→13:28)
[2017-03-19 06:03] LABS: ADD SCAN DIFF NO
[2017-03-19 06:11] LABS: BASOPHILS % 0.3 % (0.0-2.0); EOSINOPHILS # 0.2 10^3/ul (0.0-0.5); EOSINOPHILS % 1.4 % (0.0-7.0); HEMATOCRIT 35.4 % (42.0-52.0); HEMOGLOBIN 11.9 g/dl (14.0-18.0); LYMPHOCYTES # 1.4 10^3/ul (0.8-2.9); LYMPHOCYTES % 11.3 % (15.0-51.0); MEAN CORPUSCULAR HEMOGLOBIN 29.9 pg (29.0-33.0); MEAN CORPUSCULAR HGB CONC 33.6 g/dl (32.0-37.0); MEAN CORPUSCULAR VOLUME 88.9 fl (82.0-101.0); MEAN PLATELET VOLUME 9.4 fl (7.4-10.4); MONOCYTE # 0.8 10^3/ul (0.3-0.9); MONOCYTES % 6.7 % (0.0-11.0); NEUTROPHILS % 79.9 % (39.0-77.0); PLATELET COUNT 223 10^3/UL (140-415); RED BLOOD COUNT 3.98 10^6/ul (4.70-6.10); RED CELL DISTRIBUTION WIDTH 13.2 % (11.5-14.5); WHITE BLOOD COUNT 12.5 10^3/ul (4.8-10.8)
[2017-03-19 06:58] LABS: CALCIUM 8.7 mg/dl (8.4-10.2); CREATININE 0.72 mg/dl (0.61-1.24); MAGNESIUM 2.2 mg/dl (1.7-2.5); PHOSPHORUS 3.1 mg/dl (2.5-4.9); POTASSIUM 3.9 mmol/L (3.5-5.1)
[2017-03-19] MEDS: FISH OIL 1,000 MG CAP PO SCH (09:46)
[2017-03-19] MEDS: ASPIRIN (EC) 81 MG TAB PO SCH (09:46)
[2017-03-19] MEDS: CYANOCOBALAMIN 500 MCG TAB PO SCH (09:46)
[2017-03-19] MEDS: LACTOBACILLUS RHAMNOSUS CAP PO SCH (09:46)
[2017-03-19] MEDS: DUTASTERIDE 0.5 MG CAP PO SCH (09:46)
[2017-03-19] MEDS: CHOLECALCIFEROL 1,000 UNIT TAB PO SCH (09:46)
[2017-03-19] MEDS: FAMOTIDINE 20 MG TAB PO SCH (09:46)
[2017-03-19] MEDS: POLYETHYLENE GLYCOL 17 GM PACKET PO SCH (09:47)
[2017-03-19] MEDS: SOD CHLORIDE 0.9% 1,000 ML IV SCH (11:07)
--- NOTE | 2017-03-19 11:43 | PN ---
Date/Time of Note Date/Time of Note DATE: 03/19/17 TIME: 11:31 Assessment/Plan VTE Prophylaxis VTE Prophylaxis Intervention: other (on Xarelto ) Lines/Catheters IV Catheter Type (from Nrsg): Peripheral IV Urinary Cath still in place: No Reason Cath still needed: other (indicate) (condom catheter ) Assessment/Plan Assessment/Plan 66-year-old male with: 1. Episode of mechanical falls and fall secondary to imbalance with a possible trauma on the left flank area. On Xarelto currently and needs anticoagulation, given his pulmonary emboli H/H stable Pain control as needed. 2. E coli Urinary tract infection. WBC down to to 12 today and E coli sensitive to Cipro Will plan on d/c home today on cipro 500 mg po bid x 8 days (total of 10 days course) continue probiotics too. Blood cx NGTD 3. Severe cerebral atrophy with severe balance issues and multiple falls. Physical therapy to eval. 4. Benign prostatic hypertrophy with reported urinary incontinence, possible retention. Continue Avodart. S/p urias catheter, removed x 2 days, currently with condom cath and good UOP Prophylaxis. Continue Xarelto and Pepcid for gastrointestinal prophylaxis. DISPOSITION: Telemetry, d/c home with Home health PT to be resumed and Home health RN check, f/u with PCP in 1 week. Subjective 24 Hr Interval Summary Free Text/Dictation Patient doing well and at baseline No further complaints and urine cx with E coli sensitive to Cipro D/c plan home today with 8 days of Cipro Exam/Review of Systems Vital Signs Vitals Vital Signs Date Time Temp Pulse Resp B/P Pulse Ox O2 Delivery O2 Flow Rate FiO2 03/19/17 11:02 98.4 81 18 107/66 92 03/17/17 11:34 Room Air Intake and Output 03/18/17 03/18/17 03/19/17 15:00 23:00 07:00 Intake Total 300 ml 1700 ml 780 ml Output Total 1000 ml 600 ml Balance 300 ml 700 ml 180 ml Exam Constitutional: alert, oriented (x2 ), other (at baseline ) Respiratory: clear to auscultation, normal air movement Cardiovascular: nl pulses, regular rate and rhythm Gastrointestinal: non-tender, other (left flank bruise unchanged ), soft Musculoskeletal: nl extremities to inspection Extremities: normal pulses, other (no edema, clubbing or cyanosis ) Neurological: 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 AND 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 II-XII intact, nl mental status, nl speech, other (at baseline ) Results Result Diagram: 03/19/17 0545 03/19/17 0545 Results 24 hrs Laboratory Tests Test 03/19/17 05:45 White Blood Count 12.5 #H Red Blood Count 3.98 L Hemoglobin 11.9 L Hematocrit 35.4 L Mean Corpuscular Volume 88.9 Mean Corpuscular Hemoglobin 29.9 Mean Corpuscular Hemoglobin Concent 33.6 Red Cell Distribution Width 13.2 Platelet Count 223 Mean Platelet Volume 9.4 Neutrophils % 79.9 H Lymphocytes % 11.3 L Monocytes % 6.7 Eosinophils % 1.4 Basophils % 0.3 Nucleated Red Blood Cells % 0.0 Neutrophils # 10.0 H Lymphocytes # 1.4 Monocytes # 0.8 Eosinophils # 0.2 Basophils # 0.0 Nucleated Red Blood Cells # 0.0 Sodium Level 140 Potassium Level 3.9 Chloride Level 107 Carbon Dioxide Level 23 Anion Gap 14 Blood Urea Nitrogen 13 Creatinine 0.72 Glucose Level 105 Calcium Level 8.7 Phosphorus Level 3.1 Magnesium Level 2.2 Medications Medications Current Medications Aspirin (Halfprin) 81 mg DAILY PO Last administered on 03/19/17 09:46; Admin Dose 81 MG; Start 03/17/17 at 09:00 Cholecalciferol (Vitamin D) 5,000 unit DAILY PO Last administered on 03/19/17 09:46; Admin Dose 5,000 UNIT; Start 03/17/17 at 09:00 Cyanocobalamin (Vitamin B12) 1,000 mcg DAILY PO Last administered on 03/19/17 09:46; Admin Dose 1,000 MCG; Start 03/17/17 at 09:00 Dutasteride (Avodart) 0.5 mg DAILY PO Last administered on 03/19/17 09:46; Admin Dose 0.5 MG; Start 03/17/17 at 09:00 Famotidine (Pepcid) 20 mg Q12 PO Last administered on 03/19/17 09:46; Admin Dose 20 MG; Start 03/17/17 at 09:00 Polyethylene Glycol (Miralax) 17 gm DAILY PO Last administered on 03/19/17 09: 47; Admin Dose 17 GM; Start 03/17/17 at 09:00 Fish Oil 1000 mg 1,000 mg BID PO Last administered on 03/19/17 09:46; Admin Dose 1,000 MG; Start 03/17/17 at 09:00 Sodium Chloride (NS) 1,000 ml @ 75 mls/hr [id number] IV Last administered on 03/18 22:16; Admin Dose 75 MLS/HR; Start 03/17/17 at 04:21 Ondansetron HCl (Zofran Inj) 4 mg Q6H PRN IV NAUSEA AND/OR VOMITING; Start at 04:30 Acetaminophen (Tylenol Tab) 650 mg Q6H PRN PO PAIN LEVEL 1-3 OR FEVER; Start at 04:30 Docusate Sodium (Colace) 100 mg Q12H PRN PO CONSTIPATION Last administered on 10:41; Admin Dose 100 MG; Start 03/17/17 at 04:30 Magnesium Hydroxide (Milk Of Mag) 30 ml DAILY PRN PO CONSTIPATION Last administered on 03/18/17 17:38; Admin Dose 30 ML; Start 03/17/17 at 04:30 Bisacodyl (Dulcolax Supp) 10 mg DAILY PRN [place] CONSTIPATION; Start 03/17/17 at 04 :30 Pantoprazole (Protonix Tab) 40 mg DAILY@06 PO Last administered on 03/19/17 05 :51; Admin Dose 40 MG; Start 03/17/17 at 06:00 Lactobacillus Acidophilus/ Rhamnosus 1 cap 1 cap BID PO Last administered on 09:46; Admin Dose 1 CAP; Start 03/17/17 at 09:00 Meropenem (Merrem 1 Gm/100 ml (Pmx)) 100 ml @ 200 mls/hr Q8 IVPB Last administered on 03/19/17 05:51; Admin Dose 200 MLS/HR; Start 03/18/17 at 14:00 TED ROSE Mar 19, 2017 11:41
--- NOTE | 2017-03-19 11:44 | PDOCDIS ---
Discharge Instructions CONDITION Patient Condition: Stable HOME CARE INSTRUCTIONS: Special Diet: Low Fat Low Cholesteroll Diet ACTIVITY: Activity Restrictions: Slowly Increase Activity FOLLOW UP/APPOINTMENTS Follow-up Plan Follow up with Home Health PT and Home Health RN Follow up with PCP within 1 week TED ROSE Mar 19, 2017 11:44
[2017-03-19] MEDS ORDERED: CIPR500T4 PO (11:45)
[2017-03-19] MEDS: RIVAROXABAN 20 MG TABLET PO SCH (18:31)
== END 2017-03-19 19:05 | disposition home or self-care (01) ==
LOC: E/R 22:30 → TEL 03-17 03:13
PROVIDERS: ADMIT Internal Medicine; ATTEND Internal Medicine
DX: R26.89 Other abnormalities of gait and mobility (principal); N39.0 Urinary tract infection, site not specified; B96.20 Unspecified Escherichia coli [E. coli] as the cause of diseases classified elsewhere; G31.9 Degenerative disease of nervous system, unspecified; N40.1 Benign prostatic hyperplasia with lower urinary tract symptoms; R32 Unspecified urinary incontinence; Z91.81 History of falling; Z79.01 Long term (current) use of anticoagulants; Z79.82 Long term (current) use of aspirin; Z88.8 Allergy status to other drugs, medicaments and biological substances
CPT/HCPCS: 36415; 70450; 71010; 74176; 80048; 80053; 81001; 83690; 83735; 84100; 84484; 85025; 85610; 85730; 87040; 87081; 87086; 96365; 96366; 96375; 96376; 99285; G0378; J0696; J2185; J7030; J7040

== ENCOUNTER 2017-08-11 02:01 | Inpatient (IN) | payer OTHER ==
[2017-08-11] VITALS (9 sets, daily range): BP systolic 120–142; BP diastolic 65–74; PULSE 57–100; RESP 18–30; Ht 177.8 cm; Wt 81.5 kg
[~2017-08-11] VITALS: Ht 177.8 cm; Wt 81.5 kg
[~2017-08-11 02:01] MED LIST changes: +LEVO25PO MC; +PAPA1TAB10 PO
[2017-08-11] MEDS ORDERED: ACETAMINOPHEN 325 MG TAB PO PRN (06:00)
[2017-08-11] MEDS ORDERED: ONDANSETRON 4 MG INJ IV PRN (06:00)
[2017-08-11 08:18] LABS: BASOPHIL # 0.1 10^3/ul (0.0-0.1); BASOPHILS % 0.8 % (0.0-2.0); EOSINOPHILS # 0.3 10^3/ul (0.0-0.5); HEMATOCRIT 34.7 % (42.0-52.0); HEMOGLOBIN 11.4 g/dl (14.0-18.0); LYMPHOCYTES # 2.6 10^3/ul (0.8-2.9); LYMPHOCYTES % 39.3 % (15.0-51.0); MEAN CORPUSCULAR HEMOGLOBIN 29.5 pg (29.0-33.0); MEAN CORPUSCULAR HGB CONC 32.9 g/dl (32.0-37.0); MEAN CORPUSCULAR VOLUME 89.9 fl (82.0-101.0); MEAN PLATELET VOLUME 9.7 fl (7.4-10.4); MONOCYTE # 0.5 10^3/ul (0.3-0.9); MONOCYTES % 7.5 % (0.0-11.0); NEUTROPHIL # 3.1 10^3/ul (1.6-7.5); NEUTROPHILS % 48.1 % (39.0-77.0); PLATELET COUNT 226 10^3/UL (140-415); RED BLOOD COUNT 3.86 10^6/ul (4.70-6.10); WHITE BLOOD COUNT 6.5 10^3/ul (4.8-10.8)
[2017-08-11 08:29] LABS: INR 1.02; PROTIME 13.4 Sec (12.2-14.2)
[2017-08-11 08:30] LABS: PARTIAL THROMBOPLASTIN TIME 39.4 Sec (25.0-35.0)
[2017-08-11 08:33] LABS: ALBUMIN 2.8 g/dl (3.3-4.9); ALBUMIN/GLOBULIN RATIO 0.82; BILIRUBIN,INDIRECT 0.1 mg/dl (0-1.1); BILIRUBIN,TOTAL 0.1 mg/dl (0.2-1.3); CALCIUM 8.6 mg/dl (8.4-10.2); CREATININE 0.86 mg/dl (0.61-1.24); MAGNESIUM 2.1 mg/dl (1.7-2.5); PHOSPHORUS 4.2 mg/dl (2.5-4.9); POTASSIUM 3.8 mmol/L (3.5-5.1); TOTAL PROTEIN 6.2 g/dl (6.1-8.1)
[2017-08-11] MEDS: CEFTRIAXONE 1 GM/50 ML (PMX) 50 ML IVPB SCH (08:58)
[2017-08-11] MEDS: DUTASTERIDE 0.5 MG CAP PO SCH (08:59)
[2017-08-11] MEDS: CHOLECALCIFEROL 1,000 UNIT TAB PO SCH (08:59)
[2017-08-11] MEDS: CYANOCOBALAMIN 500 MCG TAB PO SCH (08:59)
[2017-08-11] MEDS: FISH OIL 1,000 MG CAP PO SCH ×3 (08:59→21:21)
[2017-08-11] MEDS ORDERED: APIXABAN 5 MG TABLET PO SCH (09:00)
--- NOTE | 2017-08-11 11:03 | RADRPT ---
PROCEDURE: US Lower extremity Venous. CLINICAL INDICATION: Bilateral lower extremity edema TECHNIQUE: Multiple sonographic images of the bilateral lower extremity deep venous system was obt ained utilizing grayscale, color-flow, compressive sonography and doppler imaging with augmentation. The images were reviewed on a PACS workstation. COMPARISON: US EXTREMITY 02/02/2017 FINDINGS: There is normal compressibility and flow within the right common femoral, femoral , posterior tibial veins. The right popliteal vein is not compressible, consistent with DVT. There is normal compressibility and flow within the left common femoral, femoral , posterior tibial and popliteal veins. RPTAT: AA IMPRESSION: Right popliteal vein DVT. A call report was made and the findings discussed with nurse Anayeli at 08/11/2017 10:51:44 AM. .Adams Drummond MD, Date Time Electronically viewed and signed by .Adams Drummond MD, on 08/11/2017 11:02 .S/
--- NOTE | 2017-08-11 13:11 | HP ---
Date/Time of Note Date/Time of Note DATE: 08/11/17 TIME: 13:09 Assessment/Plan VTE Prophylaxis VTE Prophylaxis Intervention: other (Xarelto full anticoagulation) Lines/Catheters IV [facility]ter Type (from [facility]): Peripheral IV Urinary Cath still in place: No Assessment/Plan Assessment/Plan 66-year-old male with: 1. Recurrent, second episode of venous thromboembolism with right lower extremity deep venous thrombosis, popliteal vein and left subsegmental pulmonary embolus. The patient has been taken off Xarelto 3 months ago by his primary care physician, unfortunately he now has the second episode of nausea thromboembolism therefore he will have to stay on anticoagulation for the rest of his life. His has been notified, she agrees with the plan, she wants to go back on Xarelto. Patient will be started on full anticoagulation dosing, therefore Xarelto 15 mg p.o. twice daily for 3 weeks followed by 20 mg p.o. nightly. Patient's respiratory status is otherwise at baseline, on room air, comfortable , no pleuritic pain reported. He did not even complain of lower extremity edema or cramping. 2. Benign prostatic hypertrophy. Continue Avodart. 3. Hyperlipidemia: He is on [place] 3 fish oil already. 4. Severe cerebellar atrophy with gait disturbance, slow speech at times, difficulty with memory at times. We will resume physical therapy in the next 24 -48 hours once patient has been anticoagulated. is aware. Otherwise patient at baseline from the neurological standpoint 5. Possible urinary tract infection, per report from [facility], patient is maintained on Rocephin, will obtain urine culture results from [place] hopefully they have been sent. Prophylaxis. Resuming Xarelto full dosing for VTE treatment, Pepcid for GI prophylaxis. DISPOSITION: Patient on telemetry, will follow-up on 2D echocardiogram, physical therapy to be resumed in the next 24-48 hours. Hopefully discharge planning in the next 48 hours. HPI/ROS Admit Date/Time Admit Date/Time Aug 11, 2017 at 03:45 Hx of Present Illness Chief complaint: Mild altered level of consciousness and generalized weakness History of presenting illness: This is a 67-year-old male with previous venous thromboembolism (right lower extremity DVT and multiple bilateral pulmonary emboli) who was on Xarelto until 3 months ago when it was discontinued by primary care physician as patient's VT E had resolved, he did have ultrasound of the lower extremity not long ago with no signs of DVT. However yesterday the patient complained to his that he was not "feeling himself". According to the he denied any shortness of breath, he did not have any dyspnea on exertion. He took the patient to [facility], he was evaluated there and found to have a left pulmonary embolus and a urinary tract infection, he was started on Lovenox full dose and given a dose of Rocephin and subsequently transferred to [facility] for further care within insurance network. Patient had a Doppler of the lower extremities this morning and he was found to have acute right popliteal DVT. At first I started him on Eliquis, however after talking to the it became evident that he stopped Xarelto 3 months prior and had venous thromboembolism afterwards therefore did not fail Xarelto, they wish to go back on Xarelto. Patient remains stable, mental status and neurological status is at baseline with known severe cerebellar atrophy. He is very pleasant and at baseline according to his . He denies any urinary complaints, will follow up on urine culture from [facility]. No fevers, chills, cough, chest pains, nausea, vomiting. ROS Constitutional: no complaints Eyes: no complaints ENT: no complaints Respiratory: no complaints Cardiovascular: no complaints Gastrointestinal: no complaints Genitourinary: no complaints Musculoskeletal: no complaints Skin: no complaints Neurologic: other (Patient at baseline but was feeling uncomfortable) Endocrine: no complaints Lymphatic: no complaints PMH/Family/Social Past Medical History Previous venous thromboembolism with pulmonary emboli and now with recurrent right lower extremity DVT and left subsegmental PE Benign prostatic hypertrophy. Hyperlipidemia. Severe cerebellar atrophy with abnormal gait and mostly sedentary. 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 Therefore, they had to clip and reduced them to 5. Status post right inguinal hernia repair remotely. Family History Significant Family History: no pertinent family hx Social History Alcohol Use: none Smoking Status: Never smoker Drug Use: none Exam/Review of Systems Vital Signs Vitals Vital Signs Date Time Temp Pulse Resp B/P Pulse Ox O2 Delivery O2 Flow Rate FiO2 08/11/17 12:07 69 08/11/17 12:04 98.1 20 135/72 96 Exam Constitutional: alert, oriented (x2 at least), other (Patient does have cerebellar atrophy, he is slow to remember and sometimes slow to talk needs a lot of assistance with feeding otherwise comfortable) Psych: no complaints Head: normocephalic Eyes: nl conjunctiva ENMT: nl external ears & nose, nl lips & teeth, nl nasal mucosa & septum Neck: supple Respiratory: clear to auscultation, normal air movement Cardiovascular: nl pulses, regular rate and rhythm Gastrointestinal: non-tender, soft Musculoskeletal: nl extremities to inspection Extremities: normal pulses, other (No edema, clubbing or cyanosis) Neurological: nl mental status, nl speech, other (Severe cerebellar atrophy with gait disturbance) Labs Result Diagram: 08/11/17 0735 08/11/17 0735 Medications Medications Current Medications Apixaban (Eliquis) 10 mg BID PO Last administered on 08/11/17 08:59; Admin Dose 10 MG; Start 08/11/17 at 09:00 Ondansetron HCl (Zofran Inj) 4 mg Q4H PRN IV NAUSEA AND/OR VOMITING; Start at 06:00 Acetaminophen (Tylenol Tab) 650 mg Q6H PRN PO PAIN AND OR ELEVATED TEMP; Start 08/11/17 at 06:00 Dutasteride (Avodart) 0.5 mg DAILY PO Last administered on 08/11/17 08:59; Admin Dose 0.5 MG; Start 08/11/17 at 09:00 Cholecalciferol (Vitamin D) 5,000 unit DAILY PO Last administered on 08:59; Admin Dose 5,000 UNIT; Start 08/11/17 at 09:00 Cyanocobalamin (Vitamin B12) 1,000 mcg DAILY PO Last administered on 08:59; Admin Dose 1,000 MCG; Start 08/11/17 at 09:00 Fish Oil 1000 mg 1,000 mg TID PO Last administered on 08/11/17 08:59; Admin Dose 1,000 MG; Start 08/11/17 at 09:00 Ceftriaxone Sodium (Rocephin) 50 ml @ 100 mls/hr Q24H IVPB Last administered on 08/11/17 08:58; Admin Dose 100 MLS/HR; Start 08/11/17 at 09:00 Procedures Procedures PROCEDURE: US Lower extremity Venous. CLINICAL INDICATION: Bilateral lower extremity edema TECHNIQUE: Multiple sonographic images of the bilateral lower extremity deep venous system was obtained utilizing grayscale, color-flow, compressive sonography and doppler imaging with augmentation. The images were reviewed on a PACS workstation. COMPARISON: US EXTREMITY 02/02/2017 FINDINGS: There is normal compressibility and flow within the right common femoral, femoral , posterior tibial veins. The right popliteal vein is not compressible, consistent with DVT. There is normal compressibility and flow within the left common femoral, femoral , posterior tibial and popliteal veins. RPTAT: AA IMPRESSION: Right popliteal vein DVT. A call report was made and the findings discussed with nurse Guadalupe at 2016 10:51:44 AM. CTA of the chest at [facility] did show left pulmonary embolus 2D echocardiogram pending TED ROSE Aug 11, 2017 13:11
[2017-08-11] MEDS: RIVAROXABAN 15 MG TABLET PO SCH (19:01)
[2017-08-11] MEDS: FAMOTIDINE 20 MG TAB PO SCH (21:21)
[2017-08-12] VITALS (13 sets, daily range): BP systolic 101–155; BP diastolic 65–90; PULSE 59–99; RESP 17–21
[2017-08-12 07:33] LABS: BASOPHIL # 0.1 10^3/ul (0.0-0.1); BASOPHILS % 0.7 % (0.0-2.0); EOSINOPHILS # 0.3 10^3/ul (0.0-0.5); EOSINOPHILS % 4.6 % (0.0-7.0); HEMATOCRIT 37.8 % (42.0-52.0); HEMOGLOBIN 12.7 g/dl (14.0-18.0); LYMPHOCYTES # 1.7 10^3/ul (0.8-2.9); LYMPHOCYTES % 23.9 % (15.0-51.0); MEAN CORPUSCULAR HEMOGLOBIN 29.6 pg (29.0-33.0); MEAN CORPUSCULAR HGB CONC 33.6 g/dl (32.0-37.0); MEAN CORPUSCULAR VOLUME 88.1 fl (82.0-101.0); MEAN PLATELET VOLUME 9.4 fl (7.4-10.4); MONOCYTE # 0.5 10^3/ul (0.3-0.9); MONOCYTES % 7.1 % (0.0-11.0); NEUTROPHIL # 4.4 10^3/ul (1.6-7.5); NEUTROPHILS % 63.3 % (39.0-77.0); PLATELET COUNT 247 10^3/UL (140-415); RED BLOOD COUNT 4.29 10^6/ul (4.70-6.10); RED CELL DISTRIBUTION WIDTH 12.9 % (11.5-14.5)
[2017-08-12 08:09] LABS: CALCIUM 8.9 mg/dl (8.4-10.2); CREATININE 0.77 mg/dl (0.61-1.24); POTASSIUM 3.8 mmol/L (3.5-5.1)
[2017-08-12 08:50] LABS: MAGNESIUM 2.1 mg/dl (1.7-2.5); PHOSPHORUS 4.2 mg/dl (2.5-4.9)
[2017-08-12] MEDS: FAMOTIDINE 20 MG TAB PO SCH ×2 (08:53→20:28)
[2017-08-12] MEDS: CYANOCOBALAMIN 500 MCG TAB PO SCH (08:53)
[2017-08-12] MEDS: DUTASTERIDE 0.5 MG CAP PO SCH (08:53)
[2017-08-12] MEDS: CHOLECALCIFEROL 1,000 UNIT TAB PO SCH (08:54)
[2017-08-12] MEDS: FISH OIL 1,000 MG CAP PO SCH ×3 (08:54→20:28)
[2017-08-12] MEDS: CEFTRIAXONE 1 GM/50 ML (PMX) 50 ML IVPB SCH (08:54)
[2017-08-12] MEDS: RIVAROXABAN 15 MG TABLET PO SCH ×2 (08:54→18:30)
--- NOTE | 2017-08-12 12:58 | PN ---
Date/Time of Note Date/Time of Note DATE: 08/12/17 TIME: 12:55 Assessment/Plan VTE Prophylaxis VTE Prophylaxis Intervention: other (Xarelto) Lines/Catheters [facility] Saline Lock Urinary Cath still in place: No Assessment/Plan Assessment/Plan 66-year-old male with: 1. Recurrent, second episode of venous thromboembolism with right lower extremity deep venous thrombosis, popliteal vein and left subsegmental pulmonary embolus. The patient has been taken off Xarelto 3 months ago by his primary care physician, unfortunately he now has the second episode of nausea thromboembolism therefore he will have to stay on anticoagulation for the rest of his life. His has been notified, she agrees with the plan, she wants to go back on Xarelto. Patient now on full anticoagulation dosing of Xarelto 15 mg p.o. twice daily for 3 weeks followed by 20 mg p.o. nightly. Patient's respiratory status is otherwise at baseline, on room air, comfortable , no pleuritic pain reported. He did not even complain of lower extremity edema or cramping. 2. Benign prostatic hypertrophy. Continue Avodart. 3. Hyperlipidemia: He is on [place] 3 fish oil already. 4. Severe cerebellar atrophy with gait disturbance, slow speech at times, difficulty with memory at times. We will resume physical therapy in the next 24 -48 hours once patient has been anticoagulated. is aware. Otherwise patient at baseline from the neurological standpoint 5. Possible urinary tract infection, per report from [facility], patient is maintained on Rocephin, will obtain urine culture results from [place] hopefully they have been sent , so I can adjust his antibiotics. Prophylaxis. On Xarelto full dosing for VTE treatment, Pepcid for GI prophylaxis. DISPOSITION: We will follow-up on 2D echocardiogram results, physical therapy has been started, discharge planning by tomorrow hopefully. Subjective 24 Hr Interval Summary Free Text/Dictation Patient remains stable, he has initiated physical therapy today, he is on Xarelto, discharge planning will be for tomorrow hopefully, we are requesting the urine culture results from [facility] hopefully available in order to adjust antibiotics to oral form for discharge purposes tomorrow. Exam/Review of Systems Vital Signs Vitals Vital Signs Date Time Temp Pulse Resp B/P Pulse Ox O2 Delivery O2 Flow Rate FiO2 08/12/17 11:56 98.2 84 17 101/65 94 Intake and Output 08/11/17 08/11/17 08/12/17 15:00 23:00 07:00 Intake Total 400 ml Balance 400 ml Exam Constitutional: alert, oriented (x2), other (Mostly in bed) Respiratory: clear to auscultation, normal air movement Cardiovascular: nl pulses, regular rate and rhythm Gastrointestinal: non-tender, soft Musculoskeletal: nl extremities to inspection Extremities: normal pulses, other (No edema, clubbing or cyanosis) Neurological: FERRIS WHEEL OPERATOR II-XII intact, other (Mental status remains at baseline, strength at baseline and speech at baseline.) Results Result Diagram: 08/12/1707 08/12/17 0707 Results 24 hrs Laboratory Tests Test 08/12/17 07:07 White Blood Count 7.0 Red Blood Count 4.29 L Hemoglobin 12.7 L Hematocrit 37.8 L Mean Corpuscular Volume 88.1 Mean Corpuscular Hemoglobin 29.6 Mean Corpuscular Hemoglobin Concent 33.6 Red Cell Distribution Width 12.9 Platelet Count 247 Mean Platelet Volume 9.4 Neutrophils % 63.3 Lymphocytes % 23.9 Monocytes % 7.1 Eosinophils % 4.6 Basophils % 0.7 Nucleated Red Blood Cells % 0.0 Neutrophils # 4.4 Lymphocytes # 1.7 Monocytes # 0.5 Eosinophils # 0.3 Basophils # 0.1 Nucleated Red Blood Cells # 0.0 Sodium Level 142 Potassium Level 3.8 Chloride Level 109 Carbon Dioxide Level 28 Anion Gap 9 Blood Urea Nitrogen 13 Creatinine 0.77 Glucose Level 95 Calcium Level 8.9 Phosphorus Level 4.2 Magnesium Level 2.1 Medications Medications Current Medications Ondansetron HCl (Zofran Inj) 4 mg Q4H PRN IV NAUSEA AND/OR VOMITING; Start at 06:00 Acetaminophen (Tylenol Tab) 650 mg Q6H PRN PO PAIN AND OR ELEVATED TEMP; Start 08/11/17 at 06:00 Dutasteride (Avodart) 0.5 mg DAILY PO Last administered on 08/12/17 08:53; Admin Dose 0.5 MG; Start 08/11/17 at 09:00 Cholecalciferol (Vitamin D) 5,000 unit DAILY PO Last administered on 08:54; Admin Dose 5,000 UNIT; Start 08/11/17 at 09:00 Cyanocobalamin (Vitamin B12) 1,000 mcg DAILY PO Last administered on 08:53; Admin Dose 1,000 MCG; Start 08/11/17 at 09:00 Fish Oil 1000 mg 1,000 mg TID PO Last administered on 08/12/17 08:54; Admin Dose 1,000 MG; Start 08/11/17 at 09:00 Ceftriaxone Sodium (Rocephin) 50 ml @ 100 mls/hr Q24H IVPB Last administered on 08/12/17 08:54; Admin Dose 100 MLS/HR; Start 08/11/17 at 09:00 Famotidine (Pepcid) 20 mg BID PO Last administered on 08/12/17 08:53; Admin Dose 20 MG; Start 08/11/17 at 21:00 TED ROSE Aug 12, 2017 12:58
[2017-08-13] VITALS (9 sets, daily range): BP systolic 121–139; BP diastolic 60–80; PULSE 65–98; RESP 17–18
[2017-08-13 07:24] LABS: BASOPHILS % 0.5 % (0.0-2.0); EOSINOPHILS # 0.1 10^3/ul (0.0-0.5); EOSINOPHILS % 1.7 % (0.0-7.0); HEMATOCRIT 38.3 % (42.0-52.0); HEMOGLOBIN 12.9 g/dl (14.0-18.0); LYMPHOCYTES # 1.7 10^3/ul (0.8-2.9); LYMPHOCYTES % 22.9 % (15.0-51.0); MEAN CORPUSCULAR HEMOGLOBIN 29.7 pg (29.0-33.0); MEAN CORPUSCULAR HGB CONC 33.7 g/dl (32.0-37.0); MEAN PLATELET VOLUME 9.2 fl (7.4-10.4); MONOCYTE # 0.5 10^3/ul (0.3-0.9); MONOCYTES % 6.7 % (0.0-11.0); NEUTROPHIL # 5.1 10^3/ul (1.6-7.5); NEUTROPHILS % 67.9 % (39.0-77.0); PLATELET COUNT 265 10^3/UL (140-415); RED BLOOD COUNT 4.35 10^6/ul (4.70-6.10); RED CELL DISTRIBUTION WIDTH 12.8 % (11.5-14.5); WHITE BLOOD COUNT 7.5 10^3/ul (4.8-10.8)
--- NOTE | 2017-08-13 07:37 | RADRPT ---
Echocardiogram Report Patient Name: LYNDSEY BALL Gender: Male Date: 1950 Study Date: 11-Aug-2017 Hammer Fitter: Joselyn Bolanos [facility] Location: [id number] Ref. Physician: PARESH ROSE Quality: Technically Difficult Study Procedures: Transthoracic echocardiogram with complete 2D, M-Mode, and doppler examination. Indications: Pulmonary Emboli. 2D/M Mode Doppler Measurement Value Normal Ranges Measurement Value Normal Ranges LVIDd 2D 3.9 3.5 - 5.6 cm AV Peak Russel 1.1 m/sec LVIDs 2D 2.5 2.1 - 4.1 cm AV Peak PG 4.7 mmHg LVPWd 2D 1.0 0.6 - 1.1 cm LVOT Peak Russel 0.9 m/sec IVSd 2D 1.0 0.6 - 1.1 cm LVOT Peak PG 3.0 mmHg AoR Diam 2D 3.4 2.0 - 3.7 cm MV E Peak Russel 0.7 m/sec EDV 2D 66.3 cm3 MV A Peak Russel 0.8 m/sec ESV 2D 16.1 cm3 MV E/A 0.9 LA Dimen 2D 3.3 2.3 - 4.0 cm MV Decel Time 204 msec MV Decel [place] 4 MV E/A 0.9 TR Peak Russel 2.2 m/sec TR Peak PG 19.5 mmHg RVSP 23.0 mmHg Findings Left Ventricle: Normal left ventricular systolic function. Normal left ventricular cavity size. Normal left ventricular wall thickness. Ejection fraction is visually estimated at 65 %. Tissue Doppler/Mitral Doppler indices are consistent with impaired relaxation (Stage I diastolic dysfunction). Right Ventricle: Normal right ventricular size. Normal right ventricular systolic function. Left Atrium: The left atrium is normal in size. Right Atrium: The right atrium is normal in size. Mitral Valve: Mitral valve leaflets appear mildly thickened. Mild mitral annular calcification. Trace mitral regurgitation. Aortic Valve: No significant aortic stenosis or insufficiency. Aortic cusps appear mildly calcified. Tricuspid Valve: Normal appearance of the tricuspid valve. Estimated peak PA systolic pressure 23 mmHg. There is trace tricuspid regurgitation. Pulmonic Valve: Pulmonic valve not well visualized. Pericardium: Normal pericardium with no significant pericardial effusion. Aorta: Normal aortic root. IVC: Normal size and normal respiratory collapse consistent with normal right atrial pressure. Conclusions 1.Normal left ventricular systolic function. Normal left ventricular cavity size. Normal left ventricular wall thickness. Ejection fraction is visually estimated at 65 %. Tissue Doppler/Mitral Doppler indices are consistent with impaired relaxation (Stage I diastolic dysfunction). 2.The left atrium is normal in size. 3.Mitral valve leaflets appear mildly thickened. Mild mitral annular calcification. Trace mitral regurgitation. 4.No significant aortic stenosis or insufficiency. Aortic cusps appear mildly calcified. 5.Normal appearance of the tricuspid valve. Estimated peak PA systolic pressure 23 mmHg. There is trace tricuspid regurgitation. 6.Normal pericardium with no significant pericardial effusion. 7.Pulmonic valve not well visualized. Electronically Signed By: Mikal Merritt 13-Aug-2017 07:37:01 -0800 Patient Name: LYNDSEY BALL Study Date: 11-Aug-[id number]
[2017-08-13] MEDS: DUTASTERIDE 0.5 MG CAP PO SCH (09:06)
[2017-08-13] MEDS: CYANOCOBALAMIN 500 MCG TAB PO SCH (09:06)
[2017-08-13] MEDS: CHOLECALCIFEROL 1,000 UNIT TAB PO SCH (09:06)
[2017-08-13] MEDS: RIVAROXABAN 15 MG TABLET PO SCH ×2 (09:07→18:00)
[2017-08-13] MEDS: FISH OIL 1,000 MG CAP PO SCH ×2 (09:07→13:00)
[2017-08-13] MEDS: FAMOTIDINE 20 MG TAB PO SCH (09:07)
[2017-08-13] MEDS: AMPICILLIN 500 MG CAP PO SCH ×2 (12:00→18:00)
--- NOTE | 2017-08-13 13:36 | PN ---
Date/Time of Note Date/Time of Note DATE: 08/13/17 TIME: 13:28 Assessment/Plan VTE Prophylaxis VTE Prophylaxis Intervention: other (Xarelto ) Lines/Catheters [facility] Saline Lock Urinary Cath still in place: No Assessment/Plan Assessment/Plan 66-year-old male with: 1. Recurrent, second episode of venous thromboembolism with right lower extremity deep venous thrombosis, popliteal vein and left subsegmental pulmonary embolus. The patient has been taken off Xarelto 3 months ago by his primary care physician, unfortunately he now has the second episode of nausea thromboembolism therefore he will have to stay on anticoagulation for the rest of his life. His has been notified, she agrees with the plan. Patient back on Xarelto. Will need Xarelto 15 mg p.o. twice daily for 3 weeks followed by 20 mg p.o. nightly. Patient's respiratory status is otherwise at baseline, on room air, comfortable , no pleuritic pain reported. He did not even complain of lower extremity edema or cramping. 2D echo wnl D/c Home with home health PT at least today 2. Benign prostatic hypertrophy. Continue Avodart. 3. Hyperlipidemia: He is on [place] 3 fish oil already. 4. Severe cerebellar atrophy with gait disturbance, slow speech at times, difficulty with memory at times. Otherwise patient at baseline from the neurological standpoint. Home Health PT 5. Enterococcus UTI based on urine cx from [facility], will d/c on Ampicillin. Prophylaxis. On Xarelto full dosing for VTE treatment, Pepcid for GI prophylaxis. DISPOSITION: D/c Home with home health PT and PCP follow up Subjective 24 Hr Interval Summary Free Text/Dictation Patient doing well and remains on RA D/c home today Exam/Review of Systems Vital Signs Vitals Vital Signs Date Time Temp Pulse Resp B/P Pulse Ox O2 Delivery O2 Flow Rate FiO2 08/13/17 12:20 77 08/13/17 11:36 97.5 17 138/80 92 Intake and Output 08/12/17 08/12/17 08/13/17 15:00 23:00 07:00 Intake Total 900 ml 120 ml Balance 900 ml 120 ml Exam Constitutional: alert, oriented (x2), well developed Cardiovascular: nl pulses, regular rate and rhythm Gastrointestinal: non-tender, soft Musculoskeletal: nl extremities to inspection Extremities: normal pulses, other (no edema, clubbing or cyanosis ) Neurological: PEN RULER OPERATOR II-XII intact, nl mental status, nl speech, other (strength at baseline ) Results Result Diagram: 08/13/1741 08/12/17 0707 Results 24 hrs Laboratory Tests Test 08/13/17 06:41 White Blood Count 7.5 Red Blood Count 4.35 L Hemoglobin 12.9 L Hematocrit 38.3 L Mean Corpuscular Volume 88.0 Mean Corpuscular Hemoglobin 29.7 Mean Corpuscular Hemoglobin Concent 33.7 Red Cell Distribution Width 12.8 Platelet Count 265 Mean Platelet Volume 9.2 Neutrophils % 67.9 Lymphocytes % 22.9 Monocytes % 6.7 Eosinophils % 1.7 Basophils % 0.5 Nucleated Red Blood Cells % 0.0 Neutrophils # 5.1 Lymphocytes # 1.7 Monocytes # 0.5 Eosinophils # 0.1 Basophils # 0.0 Nucleated Red Blood Cells # 0.0 Medications Medications Current Medications Ondansetron HCl (Zofran Inj) 4 mg Q4H PRN IV NAUSEA AND/OR VOMITING; Start at 06:00 Acetaminophen (Tylenol Tab) 650 mg Q6H PRN PO PAIN AND OR ELEVATED TEMP; Start 08/11/17 at 06:00 Dutasteride (Avodart) 0.5 mg DAILY PO Last administered on 08/13/17 09:06; Admin Dose 0.5 MG; Start 08/11/17 at 09:00 Cholecalciferol (Vitamin D) 5,000 unit DAILY PO Last administered on 09:06; Admin Dose 5,000 UNIT; Start 08/11/17 at 09:00 Cyanocobalamin (Vitamin B12) 1,000 mcg DAILY PO Last administered on 09:06; Admin Dose 1,000 MCG; Start 08/11/17 at 09:00 Fish Oil (Fish Oil) 1,000 mg TID PO Last administered on 08/13/17 09:07; Admin Dose 1,000 MG; Start 08/11/17 at 09:00 Famotidine (Pepcid) 20 mg BID PO Last administered on 08/13/17 09:07; Admin Dose 20 MG; Start 08/11/17 at 21:00 Ampicillin (Ampicillin) 500 mg Q6 PO ; Start 08/13/17 at 12:00 TED ROSE Aug 13, 2017 13:36
--- NOTE | 2017-08-13 13:37 | PDOCDIS ---
Discharge Instructions CONDITION Patient Condition: Stable HOME CARE INSTRUCTIONS: Diet Instructions: Regular ACTIVITY: Activity Restrictions: Slowly Increase Activity FOLLOW UP/APPOINTMENTS Follow-up Plan Follow up with Home Health PT Follow up with PCP within 1 to 2 weeks TDE ROSE Aug 13, 2017 13:37
[2017-08-13] MEDS ORDERED: AMOX1TAB10 PO (13:46)
[2017-08-13] MEDS ORDERED: RIVA15TA PO (13:46)
== END 2017-08-14 | disposition home health service (06) | DRG 299 ==
LOC: MS4 03:45
PROVIDERS: ADMIT Internal Medicine; ATTEND Internal Medicine
DX: I82.431 Acute embolism and thrombosis of right popliteal vein (principal); I26.99 Other pulmonary embolism without acute cor pulmonale; N39.0 Urinary tract infection, site not specified; N40.0 Benign prostatic hyperplasia without lower urinary tract symptoms; E78.5 Hyperlipidemia, unspecified; G31.89 Other specified degenerative diseases of nervous system; R26.2 Difficulty in walking, not elsewhere classified; K21.9 Gastro-esophageal reflux disease without esophagitis; Z79.02 Long term (current) use of antithrombotics/antiplatelets
CPT/HCPCS: 80048; 80053; 83735; 84100; 85025; 85610; 85730; 93306; 93970; 97110; 97162; 97530; J0696

== ENCOUNTER 2017-11-11 22:35 | Emergency (ER) | END 2017-11-12 10:27 | disposition home or self-care (01) ==

== ENCOUNTER 2017-12-27 20:20 | Emergency (ER) | END 2017-12-28 10:04 | disposition home or self-care (01) ==

== ENCOUNTER 2018-01-11 16:17 | Emergency (ER) | END 2018-01-12 09:15 | disposition home or self-care (01) ==

== ENCOUNTER 2018-05-08 17:31 | Emergency (ER) | END 2018-05-08 21:18 | disposition home or self-care (01) ==

== ENCOUNTER 2018-07-18 18:07 | Observation (INO) | END 2018-07-19 18:27 | disposition home health service (06) ==

== ENCOUNTER 2018-09-03 04:25 | Inpatient (IN) | END 2018-09-05 17:20 | disposition home health service (06) | DRG 689 ==